=== PATIENT | female | born 1965 | race Caucasian/White ===

== ENCOUNTER → 2016-09-28 | Outpatient (CLI) | payer OTHER ==
[~2016-09-28] MED LIST: AKWASOL OS; ALEV220T26 PO; IMIT100T PO; PERC7.5T12 PO; SYNT100T PO; TOPA100T PO; TREXIMET PO; [UNRECOGNIZED DRUG - CODE] PO
--- NOTE | 2016-09-28 14:45 | REP ---
Pelvic ultrasound including transabdominal, endovaginal and Doppler ultrasound assessment: The bladder appears adequately distended. The uterus is anteverted mildly enlarged measuring 10.0 x 4.9 x 6.1 cm. On endovaginal imaging there is a 1.2 cm fibroid in the posterior uterine wall. This is subserosal location. The endometrium is measures 11.7 mm thickness. For a postmenopausal female the endometrium is abnormally thickened. There is a tiny volume of fluid in the endometrial canal. There is a small cyst in the junctional zone. This is nonspecific but could represent adenomyosis. The ovaries are normal size. Right ovary measures 2.3 x 1.2 x 1.1 cm. The left ovary measures 3.5 x 2.8 x 3.1 cm. The right ovary is not optimally visualized. There is vascular flow in the right ovary with the Doppler resistive index of the intraparenchymal arteries measuring 0.55. There is a left ovarian 3.0 cm cyst. There is vascular flow in the left ovary with the Doppler resistive index of the intraparenchymal arteries measuring 0.51. There is no free fluid in the pelvis. Impression: The endometrium is thickened for a postmenopausal female. There are small cysts at the junctional zone, possibly representing adenomyosis. There is a 1.2 cm fibroid in the posterior myometrium. Subserosal location. There is a 3.0 cm right ovarian cyst. No free fluid in the pelvis. Signed by Christos Mcknight MD 09/28/2016 02:36 P
== END ==
LOC: M SMT 13:07
PROVIDERS: ATTEND Obstetrics & Gynecology
DX: N83.291 Other ovarian cyst, right side (principal)

== ENCOUNTER → 2016-10-11 | Outpatient (REF) | payer OTHER | LOC: M SFHCPLAZ 11:56 | PROVIDERS: ATTEND Dermatology | DX: D22.61 Melanocytic nevi of right upper limb, including shoulder (principal); D23.72 Other benign neoplasm of skin of left lower limb, including hip ==

== ENCOUNTER → 2017-10-09 | Outpatient (CLI) | payer OTHER | LOC: M WHC 09:22 | DX: Z12.31 Encounter for screening mammogram for malignant neoplasm of breast (principal); Z78.0 Asymptomatic menopausal state; Z98.82 Breast implant status ==

== ENCOUNTER 2018-01-25 08:44 | Emergency (ER) | payer OTHER ==
[2018-01-25 10:32] LABS: BASO # 0.1 10^3/uL (0.0-0.2); EOS # 0.1 10^3/uL (0.0-0.50); EOS % 2.6 % (0.0-3.0); HEMATOCRIT 41.4 % (36.0-47.0); HEMOGLOBIN 14.5 g/dl (12.0-15.5); IMMATURE GRANULOCYTE % 0.2 % (0-3.0); LYMPH # 0.9 10^3/uL (1.5-4.5); LYMPH % 17.5 % (24.0-44.0); MEAN CORPUSCULAR HEMOGLOBIN 29.6 pg (27.0-33.0); MEAN CORPUSCULAR VOLUME 84.5 fl (80.0-96.0); MONO # 0.4 10^3/uL (0.0-0.8); MONO % 7.6 % (0.0-5.0); NEUTROPHILS # 3.5 10^3/uL (1.8-7.7); NEUTROPHILS % 71.1 % (36.0-66.0); PLATELET COUNT, AUTOMATED 195 10^3/uL (150-450); RED CELL DISTRIBUTION WIDTH 11.2 % (11.5-14.5)
[2018-01-25 10:49] LABS: ALBUMIN 4.3 GM/DL (3.2-5.2); ALBUMIN/GLOBULIN RATIO 1.34 (1.00-1.93); ALT/SGPT 27 U/L (12-78); ANION GAP 10 MEQ/L (8-16); AST/SGOT 13 U/L (7-37); BILIRUBIN,DIRECT 0.1 MG/DL (0.0-0.2); BILIRUBIN,TOTAL 0.5 MG/DL (0.2-1.0); BLOOD UREA NITROGEN 21 MG/DL (7-18); CALCIUM LEVEL 8.9 MG/DL (8.5-10.1); CARBON DIOXIDE LEVEL 27 MEQ/L (21-32); CHLORIDE LEVEL 100 MEQ/L (98-107); CHOLESTEROL LEVEL 218 MG/DL (<200); CREATININE FOR GFR 1.09 MG/DL (0.55-1.30); GLOMERULAR FILTRATION RATE 55.9 (>51); LIPASE 217 U/L (73-393); SODIUM LEVEL 137 MEQ/L (136-145); TOTAL PROTEIN 7.5 GM/DL (6.4-8.2); TRIGLYCERIDES LEVEL 175 MG/DL (<150); TROPONIN I < 0.02 NG/ML (< 0.10)
[2018-01-25 10:54] LABS: ALKALINE PHOSPHATASE 80 U/L (45-117); CHOLESTEROL RISK RATIO 4.954 (<5); CK-MB VALUE MASS 4.9 NG/ML (<3.6); CPK CREATINE PHOSPHOKINASE 136 U/L (26-192); FREE T4 1.54 NG/DL (0.76-1.46); HDL CHOLESTEROL 44 MG/DL (>40); NON-HDL-C 174 MG/DL; THYROID STIMULATING HORMONE 0.168 uIU/ML (0.358-3.740)
[2018-01-25 10:59] LABS: GLUCOSE, FASTING 454 MG/DL (70-100); POTASSIUM SERUM 5.2 MEQ/L (3.5-5.1)
[2018-01-25 11:24] LABS: ESTIMATED AVERAGE GLUCOSE 266 MG/DL (60-110); HEMOGLOBIN A1c 10.9 %
[2018-01-25 11:34] LABS: VENOUS BASE EXCESS -3.8 (-2.0-2.0); VENOUS HCO3 22.5 MEQ/L (23.0-27.0); VENOUS O2 SATURATION 74.3 % (60.0-80.0); VENOUS PARTIAL PRESSURE CO2 45.4 mmHg (38.0-50.0); VENOUS PARTIAL PRESSURE O2 41.5 mmHg (30.0-50.0); VENOUS PH 7.313 UNITS (7.330-7.430); VENOUS STANDARD HCO3 20.8 MEQ/L; VENOUS TOTAL CO2 23.9 MEQ/L (24.0-28.0)
[2018-01-25 11:36] LABS: AMORPHOUS SEDIMENT RFX SMALL (NEGATIVE); KETONE, URINE AUTO RFX 2+ mg/dL (NEGATIVE); LEUKOCYTE ESTERASE UR AUTO RFX NEGATIVE (NEGATIVE); NITRITE, URINE AUTO RFX NEGATIVE (NEGATIVE); RBC, URINE AUTO RFX 2 /HPF (0-3); SPECIFIC GRAVITY UR AUTO RFX 1.031 (1.002-1.035); SQUAM EPITHELIAL CELL UR AURFX 1 /HPF (0-6); WBC, URINE AUTO RFX 2 /HPF (0-3)
[2018-01-25] MEDS: HumuLIN R (REGULAR) INSULIN (NovoLIN R) **100U/ML** PER UNIT IV (13:14)
[2018-01-25 14:05] LABS: BEDSIDE GLUCOSE 268 MG/DL (70-105)
== END 2018-01-25 14:35 | disposition home or self-care (01) ==
LOC: M ED 08:44
DX: E11.9 Type 2 diabetes mellitus without complications (principal); Z79.4 Long term (current) use of insulin; Z79.899 Other long term (current) drug therapy
CPT/HCPCS: 93005

== ENCOUNTER 2018-01-26 17:19 | Observation (INO) | payer OTHER ==
[2018-01-26 18:15] LABS: VENOUS BASE EXCESS -3.4 (-2.0-2.0); VENOUS HCO3 23.1 MEQ/L (23.0-27.0); VENOUS O2 SATURATION 58.8 % (60.0-80.0); VENOUS PARTIAL PRESSURE CO2 46.7 mmHg (38.0-50.0); VENOUS PARTIAL PRESSURE O2 30.8 mmHg (30.0-50.0); VENOUS PH 7.312 UNITS (7.330-7.430); VENOUS STANDARD HCO3 20.7 MEQ/L; VENOUS TOTAL CO2 24.5 MEQ/L (24.0-28.0)
[2018-01-26 18:21] LABS: BASO % 0.6 % (0.0-1.0); EOS # 0.1 10^3/uL (0.0-0.50); EOS % 2.6 % (0.0-3.0); HEMATOCRIT 43.6 % (36.0-47.0); HEMOGLOBIN 15.2 g/dl (12.0-15.5); IMMATURE GRANULOCYTE % 0.2 % (0-3.0); LYMPH # 1.2 10^3/uL (1.5-4.5); LYMPH % 21.7 % (24.0-44.0); MEAN CORPUSCULAR HEMOGLOBIN 30.2 pg (27.0-33.0); MEAN CORPUSCULAR HGB CONC 34.9 g/dl (32.0-36.5); MEAN CORPUSCULAR VOLUME 86.7 fl (80.0-96.0); MONO # 0.4 10^3/uL (0.0-0.8); MONO % 7.3 % (0.0-5.0); NEUTROPHILS # 3.6 10^3/uL (1.8-7.7); NEUTROPHILS % 67.6 % (36.0-66.0); PLATELET COUNT, AUTOMATED 226 10^3/uL (150-450); RED BLOOD COUNT 5.03 10^6/uL (4.00-5.40); RED CELL DISTRIBUTION WIDTH 11.4 % (11.5-14.5); WHITE BLOOD COUNT 5.3 10^3/uL (4.0-10.0)
[2018-01-26 18:24] LABS: KETONE, URINE AUTO RFX TRACE mg/dL (NEGATIVE); LEUKOCYTE ESTERASE UR AUTO RFX NEGATIVE (NEGATIVE); NITRITE, URINE AUTO RFX NEGATIVE (NEGATIVE); RBC, URINE AUTO RFX 2 /HPF (0-3); SPECIFIC GRAVITY UR AUTO RFX 1.035 (1.002-1.035); SQUAM EPITHELIAL CELL UR AURFX 2 /HPF (0-6); WBC, URINE AUTO RFX 2 /HPF (0-3)
[2018-01-26 18:53] LABS: ANION GAP 8 MEQ/L (8-16); BLOOD UREA NITROGEN 21 MG/DL (7-18); CALCIUM LEVEL 9.2 MG/DL (8.5-10.1); CARBON DIOXIDE LEVEL 27 MEQ/L (21-32); CHLORIDE LEVEL 100 MEQ/L (98-107); CREATININE FOR GFR 1.12 MG/DL (0.55-1.30); GLOMERULAR FILTRATION RATE 54.2 (>51); SODIUM LEVEL 135 MEQ/L (136-145)
[2018-01-26 18:58] LABS: GLUCOSE, FASTING 538 MG/DL (70-100)
[2018-01-26 18:59] LABS: POTASSIUM SERUM 5.3 MEQ/L (3.5-5.1)
[2018-01-26] MEDS: NS 1,000 ML IV (19:00)
[2018-01-26] MEDS: HumuLIN R (REGULAR) INSULIN (NovoLIN R) **100U/ML** PER UNIT IV (20:29)
[2018-01-26 20:32] LABS: BEDSIDE GLUCOSE 413 MG/DL (70-105)
[2018-01-26] MEDS ORDERED: metFORMIN (GLUCOPHAGE) 1000 MG TABLET PO (21:00)
[2018-01-26 21:21] LABS: ESTIMATED AVERAGE GLUCOSE 263 MG/DL (60-110); HEMOGLOBIN A1c 10.8 %
[2018-01-26 21:25] LABS: FREE THYROXINE INDEX 4.8 % (1.3-4.8); T UPTAKE 38 % (30-39); THYROXINE (T4) 12.5 UG/DL (4.5-12.0)
[2018-01-26 21:50] LABS: BEDSIDE GLUCOSE 148 MG/DL (70-105)
[2018-01-26] MEDS ORDERED: BISACODYL 5 MG TAB PO (22:00)
[2018-01-26] MEDS ORDERED: ONDANSETRON 4 MG TAB (S0181) PO (22:00)
[2018-01-26] MEDS ORDERED: ACETAMINOPHEN TAB 650MG DOSE (2X325MG) PO (22:00)
[2018-01-27] MEDS ORDERED: GLUCOSE 4 GM CHEW TABLET PO (00:30)
[2018-01-27] MEDS ORDERED: DEXTROSE 50% 50 ML SYRINGE IV (00:30)
[2018-01-27] MEDS ORDERED: GLUCAGON FOR INJ 1 MG VIAL (J1610) SC (00:30)
[2018-01-27 00:45] LABS: BEDSIDE GLUCOSE 102 MG/DL (70-105)
[2018-01-27] MEDS: NS 1,000 ML IV ×2 (00:52→10:52)
[2018-01-27] MEDS: HEPARIN SOD (PORCINE) 5000 UNITS/ML VIAL SC ×2 (01:30→05:53)
[2018-01-27] MEDS: LEVEMIR (INSULIN DETEMIR) 1 UNITS/0.01ML SC (01:30)
[2018-01-27] MEDS: TOPIRAMATE (TopAMAX) 25 MG TAB PO ×2 (01:31→08:27)
[2018-01-27] MEDS: LEVOTHYROXINE 100MCG TABLET (0.1MG) PO (05:52)
[2018-01-27] MEDS: ACETAMINOPHEN TAB 650MG DOSE (2X325MG) PO (05:53)
[2018-01-27 07:13] LABS: ALBUMIN/GLOBULIN RATIO 1.36 (1.00-1.93); ALKALINE PHOSPHATASE 55 U/L (45-117); ALT/SGPT 19 U/L (12-78); ANION GAP 7 MEQ/L (8-16); AST/SGOT 9 U/L (7-37); BILIRUBIN,TOTAL 0.2 MG/DL (0.2-1.0); BLOOD UREA NITROGEN 14 MG/DL (7-18); CALCIUM LEVEL 7.9 MG/DL (8.5-10.1); CARBON DIOXIDE LEVEL 26 MEQ/L (21-32); CHLORIDE LEVEL 111 MEQ/L (98-107); CREATININE FOR GFR 0.74 MG/DL (0.55-1.30); GLOMERULAR FILTRATION RATE > 60.0 (>51); GLUCOSE, FASTING 302 MG/DL (70-100); POTASSIUM SERUM 3.4 MEQ/L (3.5-5.1); SODIUM LEVEL 144 MEQ/L (136-145); TOTAL PROTEIN 5.2 GM/DL (6.4-8.2)
[2018-01-27] MEDS: HumaLOG INSULIN (NovoLOG) PER UNIT SC ×2 (07:40→12:43)
[2018-01-27] MEDS: GLIMEPIRIDE 2 MG TAB PO (08:27)
[2018-01-27] MEDS ORDERED: SITagliptin 50 MG TAB (JANUVIA) PO (09:00)
[2018-01-27 12:30] LABS: BEDSIDE GLUCOSE 106 MG/DL (70-105)
[2018-01-30 10:57] LABS: BEDSIDE GLUCOSE 539 MG/DL (70-105)
== END 2018-01-27 13:50 | disposition home or self-care (01) ==
LOC: M PED 01-27 00:35 → M ED 17:19 → M ED INP 21:59
PROVIDERS: Internal Medicine Nephrology
DX: E11.65 Type 2 diabetes mellitus with hyperglycemia (principal); E03.9 Hypothyroidism, unspecified; Z79.899 Other long term (current) drug therapy
CPT/HCPCS: 82803

== ENCOUNTER → 2018-03-09 | Outpatient (REF) | payer OTHER ==
[2018-03-13 14:16] LABS: GAD-65 AUTOANTIBODY 5400.8 U/mL (0.0-5.0)
== END ==
LOC: M LAB REF 15:07
DX: E11.65 Type 2 diabetes mellitus with hyperglycemia (principal)

== ENCOUNTER → 2018-05-01 | Outpatient (REF) | payer OTHER | LOC: M SFHCLERA 18:14 | DX: R21 Rash and other nonspecific skin eruption (principal) ==

== ENCOUNTER → 2018-05-02 | Outpatient (REF) | payer OTHER | LOC: M LAB REF 17:31 | DX: R21 Rash and other nonspecific skin eruption (principal) ==

== ENCOUNTER → 2019-02-06 | Outpatient (CLI) | payer OTHER ==
[~2019-02-06] MED LIST changes: +BOTO200I IM; +GLIM2TAB29 PO; +LANTINJ4 SC; +SUMA1TAB PO; +TYLE325T5 PO; +[UNRECOGNIZED DRUG - CODE] XX
--- NOTE | 2019-02-06 14:57 | REPMRS ---
Patient History The patient states she had a clinical breast exam in 04/2018. No known family history of cancer. Implants in both breasts, 2003. Digital Woman Screen Mammo: February 06, 2019 - Exam #: [id number] Bilateral CC and MLO view(s) were taken. Technologist: Niocle Solano, Technologist Prior study comparison: October 09, 2017, digital woman screen mammo performed at [facility]. February 08, 2016, digital woman screen mammo performed at [facility]. FINDINGS: The breast tissue is heterogeneously dense. This may lower the sensitivity of mammography. The visualized implant margins are smooth. Breast parenchymal density pattern is essentially symmetric. No dominant mass, grouped microcalcification, or architectural distortion is evident on either side. 3-D tomosynthesis shows no additional findings. No significant changes when compared with prior studies. Assessment: BI-RADS/ACR category 2 mammogram. Benign Findings. Recommendation Routine screening mammogram of both breasts in 1 year (for women over age 40). This patient's Lifetime Breast Cancer RIsk is estimated at 8.3 %. This mammogram was interpreted with the aid of an FDA-approved computer-aided dectection system. Electronically Signed By: Supa Anthony MD 02/06/19 [id number]
== END ==
LOC: M WHC 10:03
PROVIDERS: ATTEND Obstetrics & Gynecology
DX: Z12.31 Encounter for screening mammogram for malignant neoplasm of breast (principal)

== ENCOUNTER → 2019-08-14 | Outpatient (CLI) | payer OTHER ==
[2019-08-14 19:06] LABS: BLOOD UREA NITROGEN 21 MG/DL (7-18); CARBON DIOXIDE LEVEL 31 MEQ/L (21-32); CHLORIDE LEVEL 105 MEQ/L (98-107); CHOLESTEROL LEVEL 193 MG/DL (<200); CHOLESTEROL RISK RATIO 2.924 (<5); CREATININE FOR GFR 0.85 MG/DL (0.55-1.30); GLOMERULAR FILTRATION RATE > 60.0 (>51); GLUCOSE, FASTING 118 MG/DL (70-100); HDL CHOLESTEROL 66 MG/DL (>40); LDL CHOLESTEROL 110 MG/DL (<100); NON-HDL-C 127 MG/DL; POTASSIUM SERUM 4.1 MEQ/L (3.5-5.1); SODIUM LEVEL 141 MEQ/L (136-145); TRIGLYCERIDES LEVEL 85 MG/DL (<150)
== END ==
LOC: M PLALAB 13:15
PROVIDERS: ATTEND Internal Medicine
DX: I10 Essential (primary) hypertension (principal); E03.9 Hypothyroidism, unspecified; Z13.220 Encounter for screening for lipoid disorders

== ENCOUNTER → 2020-02-26 | Outpatient (CLI) | payer OTHER ==
--- NOTE | 2020-02-26 16:56 | REPMRS ---
Patient History The patient states she had a clinical breast exam in April 2019. No known family history of cancer. Implants in both breasts, 2003. 3D TOMOSYNTHESIS WAS PERFORMED. [facility] for [facility] cancer is 8.1%. VOLPARA DENSITY B Digital Woman Screen Mammo: February 26, 2020 - Exam #: [id number] Bilateral CC and MLO view(s) were taken. Technologist: Ekaterina Arshad RT Prior study comparison: February 06, 2019, bilateral digital woman screen mammo performed at [facility]. October 09, 2017, digital woman screen mammo performed at [facility]. FINDINGS: The breast tissue is heterogeneously dense. This may lower the sensitivity of mammography. There has been no change in the appearance of the mammogram from the prior studies. There is a moderate amount of residual fibroglandular tissue which is fairly symmetric. There is no interval development of dominant mass, areas of architectural distortion, or clustered microcalcification typical of malignancy. Bilateral breast implants are grossly intact. No significant changes when compared with prior studies. Assessment: BI-RADS/ACR category 1 mammogram. Negative Mammogram. Recommendation Routine screening mammogram in 1 year (for women over age 40). This mammogram was interpreted with the aid of an FDA-approved computer-aided dectection system. Electronically Signed By: Christos Martinez MD 02/26/20 [id number]
== END ==
LOC: M WHC 15:54
PROVIDERS: ATTEND Obstetrics & Gynecology
DX: Z12.31 Encounter for screening mammogram for malignant neoplasm of breast (principal)

== ENCOUNTER → 2020-04-15 | Outpatient (CLI) | payer OTHER ==
[2020-04-15 14:08] LABS: HEMOGLOBIN 14.1 g/dl (12.0-15.5); MEAN CORPUSCULAR HEMOGLOBIN 29.9 pg (27.0-33.0); MEAN CORPUSCULAR VOLUME 93.4 fl (80.0-96.0); PLATELET COUNT, AUTOMATED 235 10^3/uL (150-450); RED BLOOD COUNT 4.71 10^6/uL (4.00-5.40)
[2020-04-15 14:39] LABS: ALBUMIN 3.9 GM/DL (3.2-5.2); ALT/SGPT 21 U/L (12-78); BILIRUBIN,TOTAL 0.4 MG/DL (0.2-1.0); BLOOD UREA NITROGEN 15 MG/DL (7-18); CALCIUM LEVEL 9.2 MG/DL (8.5-10.1); CARBON DIOXIDE LEVEL 30 MEQ/L (21-32); CHLORIDE LEVEL 105 MEQ/L (98-107); CHOLESTEROL LEVEL 210 MG/DL (<200); CHOLESTEROL RISK RATIO 3.043 (<5); CREATININE FOR GFR 0.79 MG/DL (0.55-1.30); GLOMERULAR FILTRATION RATE > 60.0 (>51); GLUCOSE, FASTING 136 MG/DL (70-100); HDL CHOLESTEROL 69 MG/DL (>40); LDL CHOLESTEROL 128 MG/DL (<100); NON-HDL-C 141 MG/DL; POTASSIUM SERUM 4.2 MEQ/L (3.5-5.1); SODIUM LEVEL 140 MEQ/L (136-145); TOTAL PROTEIN 6.8 GM/DL (6.4-8.2); TRIGLYCERIDES LEVEL 66 MG/DL (<150)
[2020-04-15 14:48] LABS: CREATININE, URINE 13.9 MG/DL; MALB URINE SIEMENS < 5.0 MG/L; MAU/CREAT RATIO 35.9 MCG/MG (0.0-30.0)
== END ==
LOC: M PLALAB 10:49
PROVIDERS: ATTEND Internal Medicine Endocrinology, Diabetes & Metabolism
DX: E10.649 Type 1 diabetes mellitus with hypoglycemia without coma (principal)

== ENCOUNTER 2020-08-18 15:38 | Emergency (ER) | payer OTHER ==
[~2020-08-18] VITALS: Ht 157.5 cm; Wt 60.7 kg
--- OUTSIDE RECORDS SUMMARY | 2020-08-18 15:44 | CCD ---
Author Author [facility] Address Unknown Phone Unavailable Support Name Relationship Address Phone GUZMAN CORTEZ Next Of Kin [address] [place] [address] INDRIVSCH [facility] [id number] [address] [place] [address] PATRICIA GAN Next Of [facility] [id number] [place] [phone] PATRICIA FRANCE Next Of [facility] [id number] [place] [id number] KARRIE PADGETT Next Of Kin [address] [place] [address] [facility] [address] [place] [address] Mita PADGETT Next Of Kin [address] [facility][1] [address] [place] [address] JAMEE PADGETT Next Of Kin [address] [place] [address] [place] [address] [facility] Next Of Kin [id number] [place] [address] [address] [place] [address] [facility] Next Of Kin [phone] [facility] [address] [place] [address] ANGELICA [place] [phone] MALACHI SILVA Next Of Kin [address] [place] [address] Patricia Gan [place] [address] [place] [address] Unavailable [place] [address] Unavailable Care Team Providers Care Media Operator Name Role Phone Marcelo, Gabi MD Unavailable Unavailable Marcelo, Gabi MD Unavailable Unavailable Marcelo, Gabi MD Unavailable Unavailable Marcelo, Gabi MD Unavailable Unavailable Marcelo, Gabi MD Unavailable Unavailable Marcelo, Gabi MD Unavailable Unavailable Marcelo, Gabi MD Unavailable Unavailable Marcelo, Gabi MD Unavailable Unavailable Marcelo, Gabi MD Unavailable Unavailable Marcelo, Gabi MD Unavailable Unavailable Marcelo, Gabi MD Unavailable Unavailable Marcelo, Gabi MD Unavailable Unavailable Marcelo, Gabi MD Unavailable Unavailable Marcelo, Gabi MD Unavailable Unavailable Marcelo, Gabi MD Unavailable Unavailable Marcelo, Gabi MD Unavailable Unavailable Marcelo, Gabi MD Unavailable Unavailable Marcelo, Gabi MD Unavailable Unavailable Marcelo, Gabi MD Unavailable Unavailable Marcelo, Gabi MD Unavailable Unavailable Marcelo, Gabi MD Unavailable Unavailable Marcelo, Gabi MD Unavailable Unavailable Marcelo, Gabi MD Unavailable Unavailable Marcelo, Gabi MD Unavailable Unavailable Marcelo, Gabi MD Unavailable Unavailable Marcelo, Gabi MD Unavailable Unavailable Marcelo, Gabi MD Unavailable Unavailable Marcelo, Gabi MD Unavailable Unavailable Marcelo, Gabi MD Unavailable Unavailable Marcelo, Gabi MD Unavailable Unavailable Marcelo, Gabi MD Unavailable Unavailable Marcelo, Gabi MD Unavailable Unavailable Marcelo, Gabi MD Unavailable Unavailable Marcelo, Gabi MD Unavailable Unavailable Marcelo, Gabi MD Unavailable Unavailable Marcelo, Gabi MD Unavailable Unavailable Marcelo, Gabi MD Unavailable Unavailable Marcelo, Gabi MD Unavailable Unavailable Marcelo, Gabi MD Unavailable Unavailable Marcelo, Gabi MD Unavailable Unavailable Marcelo, Gabi MD Unavailable Unavailable Marcelo, Gabi MD Unavailable Unavailable Marcelo, Gabi MD Unavailable Unavailable Marcelo, Gabi MD Unavailable Unavailable Marcelo, Gabi MD Unavailable Unavailable Marcelo, Gabi MD Unavailable Unavailable Marcelo, Gabi MD Unavailable Unavailable Marcelo, Gabi MD Unavailable Unavailable Marcelo, Gabi MD Unavailable Unavailable Marcelo, Gabi MD Unavailable Unavailable Marcelo, Gabi MD Unavailable Unavailable Marcelo, Gabi MD Unavailable Unavailable Marcelo, Gabi MD Unavailable Unavailable Marcelo, Gabi MD Unavailable Unavailable Marcelo, Gabi MD Unavailable Unavailable Marcelo, Gabi MD Unavailable Unavailable Marcelo, Gabi MD Unavailable Unavailable Marcelo, Gabi MD Unavailable Unavailable Marcelo, Gabi MD Unavailable Unavailable Marcelo, Gabi MD Unavailable Unavailable Marcelo, Gabi MD Unavailable Unavailable Marcelo, Gabi MD Unavailable Unavailable Marcelo, Gabi MD Unavailable Unavailable HERRERA, DELPHI MARLEE Unavailable Unavailable Fish, Laila Beltran MD Unavailable Unavailable Fish, Laila Beltran MD Unavailable Unavailable Fish, Laila Beltran MD Unavailable Unavailable Fish, Laila Beltran MD Unavailable Unavailable Fish, Laila Beltran MD Unavailable Unavailable Fish, Laila Beltran MD Unavailable Unavailable Fish, Laila Beltran MD Unavailable Unavailable Fish, Laila Beltran MD Unavailable Unavailable Fish, Laila Beltran MD Unavailable Unavailable Fish, Laila Beltran MD Unavailable Unavailable Fish, Laila Beltran MD Unavailable Unavailable Fish, Laila Beltran MD Unavailable Unavailable Fish, Laila Beltran MD Unavailable Unavailable Fish, Laila Beltran MD Unavailable Unavailable Fish, Laila Beltran MD Unavailable Unavailable Fish, Laila Beltran MD Unavailable Unavailable Fish, Laila Beltran MD Unavailable Unavailable Fish, Laila Beltran MD Unavailable Unavailable Fish, Laila Beltran MD Unavailable Unavailable Fish, Laila Beltran MD Unavailable Unavailable Fish, Laila Beltran MD Unavailable Unavailable Fish, Laila Beltran MD Unavailable Unavailable Fish, Laila Beltran MD Unavailable Unavailable Fish, Laila Beltran MD Unavailable Unavailable Fish, Laila Beltran MD Unavailable Unavailable Fish, Laila Beltran MD Unavailable Unavailable Fish, Laila Beltran MD Unavailable Unavailable Fish, Laila Beltran MD Unavailable Unavailable Fish, Laila Beltran MD Unavailable Unavailable Fish, Laila Beltran MD Unavailable Unavailable Fish, Laila Beltran MD Unavailable Unavailable Fish, Laila Beltran MD Unavailable Unavailable Fish, Laila Beltran MD Unavailable Unavailable Fish, Laila Beltran MD Unavailable Unavailable Fish, Laila Beltran MD Unavailable Unavailable Fish, Laila Beltran MD Unavailable Unavailable Fish, Laila Beltran MD Unavailable Unavailable Fish, Laila Beltran MD Unavailable Unavailable Fish, Laila Beltran MD Unavailable Unavailable Fish, Laila Beltran MD Unavailable Unavailable Fish, Laila Beltran MD Unavailable Unavailable Fish, Laila Beltran MD Unavailable Unavailable Fish, Laila Beltran MD Unavailable Unavailable Fish, Laila Beltran MD Unavailable Unavailable Fish, Laila Beltran MD Unavailable Unavailable Fish, Laila Beltran MD Unavailable Unavailable Fish, Laila Beltran MD Unavailable Unavailable Fish, Laila Beltran MD Unavailable Unavailable Fish, Laila Beltran MD Unavailable Unavailable Fish, Laila Beltran MD Unavailable Unavailable Fish, Laila Beltran MD Unavailable Unavailable Fish, Laila Beltran MD Unavailable Unavailable Fish, Laila Beltran MD Unavailable Unavailable Fish, Laila Beltran MD Unavailable Unavailable Fish, Laila Beltran MD Unavailable Unavailable Fish, Laila Beltran MD Unavailable Unavailable Fish, Laila Beltran MD Unavailable Unavailable Fish, Laila Beltran MD Unavailable Unavailable Fish, Laila Beltran MD Unavailable Unavailable Fish, Laila Beltran MD Unavailable Unavailable Fish, Laila Beltran MD Unavailable Unavailable Fish, Laila Beltran MD Unavailable Unavailable Fish, Laila Beltran MD Unavailable Unavailable Laila Padgett MD Unavailable Unavailable Saeid, Susie DIGITAL MEDIA BUYER Unavailable Unavailable Saeid, Susie DIGITAL MEDIA BUYER Unavailable Unavailable Saeid, Susie DIGITAL MEDIA BUYER Unavailable Unavailable Saeid, Susie DIGITAL MEDIA BUYER Unavailable Unavailable Saeid, Susie DIGITAL MEDIA BUYER Unavailable Unavailable Saeid, Susie DIGITAL MEDIA BUYER Unavailable Unavailable Saeid, Susie DIGITAL MEDIA BUYER Unavailable Unavailable Saeid, Susie DIGITAL MEDIA BUYER Unavailable Unavailable Saeid, Susie DIGITAL MEDIA BUYER Unavailable Unavailable Saeid, Susie DIGITAL MEDIA BUYER Unavailable Unavailable Saeid, Susie DIGITAL MEDIA BUYER Unavailable Unavailable Saeid, Susie DIGITAL MEDIA BUYER Unavailable Unavailable Saeid, Susie DIGITAL MEDIA BUYER Unavailable Unavailable Saeid, Susie DIGITAL MEDIA BUYER Unavailable Unavailable Saeid, Susie DIGITAL MEDIA BUYER Unavailable Unavailable Saeid, Susie DIGITAL MEDIA BUYER Unavailable Unavailable Saeid, Susie DIGITAL MEDIA BUYER Unavailable Unavailable Saeid, Susie DIGITAL MEDIA BUYER Unavailable Unavailable Saeid, Susie DIGITAL MEDIA BUYER Unavailable Unavailable Saeid, Susie DIGITAL MEDIA BUYER Unavailable Unavailable Saeid, Susie DIGITAL MEDIA BUYER Unavailable Unavailable Saeid, Susie DIGITAL MEDIA BUYER Unavailable Unavailable Saeid, Susie DIGITAL MEDIA BUYER Unavailable Unavailable Saeid, Susie DIGITAL MEDIA BUYER Unavailable Unavailable Aseid, Susie DIGITAL MEDIA BUYER Unavailable Unavailable Saeid, Susie DIGITAL MEDIA BUYER Unavailable Unavailable Saeid, Susie DIGITAL MEDIA BUYER Unavailable Unavailable Saeid, Susie DIGITAL MEDIA BUYER Unavailable Unavailable Saeid, Susie DIGITAL MEDIA BUYER Unavailable Unavailable Saeid, Susie DIGITAL MEDIA BUYER Unavailable Unavailable Saeid, Susie DIGITAL MEDIA BUYER Unavailable Unavailable Saeid, Susie DIGITAL MEDIA BUYER Unavailable Unavailable Saeid, Susie DIGITAL MEDIA BUYER Unavailable Unavailable Saeid, Susie DIGITAL MEDIA BUYER Unavailable Unavailable Saeid, Susie DIGITAL MEDIA BUYER Unavailable Unavailable Saeid, Ussie DIGITAL MEDIA BUYER Unavailable Unavailable Saeid, Susie DIGITAL MEDIA BUYER Unavailable Unavailable Saeid, Susie DIGITAL MEDIA BUYER Unavailable Unavailable Saeid, Susie DIGITAL MEDIA BUYER Unavailable Unavailable Saeid, Susie DIGITAL MEDIA BUYER Unavailable Unavailable Saeid, Susie DIGITAL MEDIA BUYER Unavailable Unavailable Saeid, Susie DIGITAL MEDIA BUYER Unavailable Unavailable Saeid, Susie DIGITAL MEDIA BUYER Unavailable Unavailable Saeid, Susie DIGITAL MEDIA BUYER Unavailable Unavailable Saeid, Susie DIGITAL MEDIA BUYER Unavailable Unavailable Saeid, Susie DIGITAL MEDIA BUYER Unavailable Unavailable Saeid, Susie DIGITAL MEDIA BUYER Unavailable Unavailable Saeid, Susie DIGITAL MEDIA BUYER Unavailable Unavailable Saeid, Susie DIGITAL MEDIA BUYER Unavailable Unavailable Saeid, Susie DIGITAL MEDIA BUYER Unavailable Unavailable Saeid, Susie DIGITAL MEDIA BUYER Unavailable Unavailable Saeid, Susie DIGITAL MEDIA BUYER Unavailable Unavailable Saeid, Susie DIGITAL MEDIA BUYER Unavailable Unavailable MohitbekKaye Vee MD Unavailable Unavailable Dombek-Sanya, Kaye Ewing MD Unavailable Unavailable Mohitbek-Sanya, Kaye Ewing MD Unavailable Unavailable Mhoitbek-Sanya, Kaye Ewing MD Unavailable Unavailable Dombek-Sanya, Kaye Ewing MD Unavailable Unavailable Dombek-Lang, Kaye Ewing MD Unavailable Unavailable Dombek-Lang, Kaye Ewing MD Unavailable Unavailable Dombek-Lang, Kaye Ewing MD Unavailable Unavailable Dombek-Lang, Kaye Ewing MD Unavailable Unavailable Dombek-Sanya, Kaye Ewing MD Unavailable Unavailable Dombek-Kaye Segundo MD Unavailable Unavailable Dombek-Kaye Segundo MD Unavailable Unavailable Mohitbek-Kaye Segundo MD Unavailable Unavailable Mohitbek-Kaye Segundo MD Unavailable Unavailable Mohitbek-Kaye Segundo MD Unavailable Unavailable Dombek-Kaye Segundo MD Unavailable Unavailable MohitbekKaye Vee MD Unavailable Unavailable MohitbekKaye Vee MD Unavailable Unavailable Dombek-Kaye Segundo MD Unavailable Unavailable MohitbekKaye Vee MD Unavailable Unavailable Dombek-Kaye Segundo MD Unavailable Unavailable MohitbekKaye Vee MD Unavailable Unavailable MohitbeKaye Mirza MD Unavailable Unavailable Mohitbek-Kaye Segundo MD Unavailable Unavailable MohitbekKaye Vee MD Unavailable Unavailable Dombek-Kaye Segundo MD Unavailable Unavailable Dombek-Kaye Segundo MD Unavailable Unavailable Mohitbek-Kaye Segundo MD Unavailable Unavailable Mohitbek-Kaye Segundo MD Unavailable Unavailable Mohitbek-Kaye Segundo MD Unavailable Unavailable Mohitbek-Kaye Segundo MD Unavailable Unavailable Dombek-Kaye Segundo MD Unavailable Unavailable Mohitbek-Kaye Segundo MD Unavailable Unavailable Dombek-Kaye Segundo MD Unavailable Unavailable Dombek-LangKaye MD Unavailable Unavailable Dombek-Lang, V Kaylin MD Unavailable Unavailable Kaye Steve MD Unavailable Unavailable CHETAN GALLEGOS Unavailable Unavailable MCCANN, W VALORIE PA Unavailable Unavailable MCCANN, W VALORIE PA Unavailable Unavailable MCCANN, W VALORIE PA Unavailable Unavailable MCCANN, W VALORIE PA Unavailable Unavailable MCCANN, W VALORIE PA Unavailable Unavailable MCCANN, W VALORIE PA Unavailable Unavailable MCCANN, W VALORIE PA Unavailable Unavailable MCCANN, W VALORIE PA Unavailable Unavailable MCCANN, W VALORIE PA Unavailable Unavailable MCCANN, W VALORIE PA Unavailable Unavailable MCCANN, W VALORIE PA Unavailable Unavailable MCCANN, W VALORIE PA Unavailable Unavailable MCCANN, W VALORIE PA Unavailable Unavailable MCCANN, W VALORIE PA Unavailable Unavailable MCCANN, W VALORIE PA Unavailable Unavailable MCCANN, W VALORIE PA Unavailable Unavailable MCCANN, W VALORIE PA Unavailable Unavailable MCCANN, W VALORIE PA Unavailable Unavailable MCCANN, W VALORIE PA Unavailable Unavailable MCCANN, W VALORIE PA Unavailable Unavailable MCCANN, W VALORIE PA Unavailable Unavailable MCCANN, W VALORIE PA Unavailable Unavailable MCCANN, W VALORIE PA Unavailable Unavailable MCCANN, W VALORIE PA Unavailable Unavailable MCCANN, W VALORIE PA Unavailable Unavailable MCCANN, W VALORIE PA Unavailable Unavailable MCCANN, W VALORIE PA Unavailable Unavailable MCCANN, W VALORIE PA Unavailable Unavailable MCCANN, W VALORIE PA Unavailable Unavailable MCCANN, W VALORIE PA Unavailable Unavailable MCCANN, W VALORIE PA Unavailable Unavailable MCCANN, W VALORIE PA Unavailable Unavailable MCCANN, W VALORIE PA Unavailable Unavailable MCCANN, W VALORIE PA Unavailable Unavailable MCCANN, W VALORIE PA Unavailable Unavailable MCCANN, W VALORIE PA Unavailable Unavailable MCCANN, W VALORIE PA Unavailable Unavailable MCCANN, W VALORIE PA Unavailable Unavailable MCCANN, W VALORIE PA Unavailable Unavailable MCCANN, W VALORIE PA Unavailable Unavailable MCCANN, W VALORIE PA Unavailable Unavailable MCCANN, W VALORIE PA Unavailable Unavailable MCCANN, W VALORIE PA Unavailable Unavailable MCCANN, W VALORIE PA Unavailable Unavailable MCCANN, W VALORIE PA Unavailable Unavailable MCCANN, W VALORIE PA Unavailable Unavailable NOEMY, J Barbara ANP Unavailable Unavailable NOEMY, J Barbara ANP Unavailable Unavailable NOEMY, J Barbara ANP Unavailable Unavailable NOEMY, J Barbara ANP Unavailable Unavailable NOEMY, J Barbara ANP Unavailable Unavailable NOEMY, J Barbara ANP Unavailable Unavailable NOEMY, J Barbara ANP Unavailable Unavailable NOEMY, J Barbara ANP Unavailable Unavailable NOEMY, J Barbara ANP Unavailable Unavailable NOEMY, J Barbara ANP Unavailable Unavailable NOEMY, J Barbara ANP Unavailable Unavailable NOEMY, J Barbara ANP Unavailable Unavailable NOEMY, J Barbara ANP Unavailable Unavailable NOEMY, J Barbara ANP Unavailable Unavailable NOEMY, J Barbara ANP Unavailable Unavailable NOEMY, J Barbara ANP Unavailable Unavailable NOEMY, J Barbara ANP Unavailable Unavailable NOEMY, J Barbara ANP Unavailable Unavailable NOEMY, J Barbara ANP Unavailable Unavailable NOEMY, J Barbara ANP Unavailable Unavailable NOEMY, J Barbara ANP Unavailable Unavailable NOEMY, J Barbara ANP Unavailable Unavailable NOEMY, J Barbara ANP Unavailable Unavailable NOEMY, J Barbara ANP Unavailable Unavailable NOEMY, J Barbara ANP Unavailable Unavailable NOEMY, J Barbara ANP Unavailable Unavailable NOEMY, J Barbara ANP Unavailable Unavailable NOEMY, J Barbara ANP Unavailable Unavailable NOEMY, J Barbara ANP Unavailable Unavailable NOEMY, J Barbara ANP Unavailable Unavailable NOEMY, J Barbara ANP Unavailable Unavailable NOEMY, J Barbara ANP Unavailable Unavailable NOEMY, J Barbara ANP Unavailable Unavailable NOEMY, J Barbara ANP Unavailable Unavailable NOEMY, J Barbara ANP Unavailable Unavailable NOEMY, J Barbara ANP Unavailable Unavailable NOEMY, J Barbara ANP Unavailable Unavailable NOEMY, J Barbara ANP Unavailable Unavailable NOEMY, J Barbara ANP Unavailable Unavailable NOEMY, J Barbara ANP Unavailable Unavailable NOEMY, J Barbara ANP Unavailable Unavailable NOEMY, J Barbara ANP Unavailable Unavailable NOEMY, J Barbara ANP Unavailable Unavailable NOEMY, J Barbara ANP Unavailable Unavailable NOEMY, J Barbara ANP Unavailable Unavailable NOEMY, J Barbara ANP Unavailable Unavailable NOEMY, J Barbara ANP Unavailable Unavailable NOEMY, J Barbara ANP Unavailable Unavailable NOEMY, J Barbara ANP Unavailable Unavailable NOEMY, J Barbara ANP Unavailable Unavailable NOEMY, J Barbara ANP Unavailable Unavailable NOEMY, J Barbara ANP Unavailable Unavailable NOEMY, J Barbara ANP Unavailable Unavailable NOEMY, J Barbara ANP Unavailable Unavailable NOEMY, J Barbara ANP Unavailable Unavailable NOEMY, J Barbara ANP Unavailable Unavailable NOEMY, J Barbara ANP Unavailable Unavailable NOEMY, J Barbara ANP Unavailable Unavailable NOEMY, J Barbara ANP Unavailable Unavailable NOEMY, J Barbara ANP Unavailable Unavailable NOEMY, J Barbara ANP Unavailable Unavailable NOEMY, J Barbara ANP Unavailable Unavailable NOEMYMelaniacy ANP Unavailable Unavailable NOEMYMelaniacy ANP Unavailable Unavailable NOEMY, J Barbara ANP Unavailable Unavailable NOEMY J Barbara ANP Unavailable Unavailable Re-disclosure Warning The records that you are about to access may contain information from federally-assisted alcohol or drug abuse programs. If such information is present, then the following federally mandated warning applies: This information has been disclosed to you from records protected by federal confidentiality rules (42 CFR part 2). The federal rules prohibit you from making any further disclosure of this information unless further disclosure is expressly permitted by the written consent of the person to whom it pertains or as otherwise permitted by 42 CFR part 2. A general authorization for the release of medical or other information is NOT sufficient for this purpose. The Federal rules restrict any use of the information to criminally investigate or prosecute any alcohol or drug abuse patient.The records that you are about to access may contain highly sensitive health information, the redisclosure of which is protected by Article 27-F of the [facility] Public Health law. If you continue you may have access to information: Regarding HIV / AIDS; Provided by facilities licensed or operated by the [facility] Office of Mental Health; or Provided by the [facility] Office for People With Developmental Disabilities. If such information is present, then the following [facility] mandated warning applies: This information has been disclosed to you from confidential records which are protected by state law. State law prohibits you from making any further disclosure of this information without the specific written consent of the person to whom it pertains, or as otherwise permitted by law. Any unauthorized further disclosure in violation of state law may result in a fine or care home sentence or both. A general authorization for the release of medical or other information is NOT sufficient authorization for further disc losure. Family History Family Member Name Family Member Gender Family Member Status Date o f Status Description Data Source(s) Unknown Unknown Problem [facility] ([facility], ) Encounters Encounter Providers Location Date Indications Data Source(s ) Outpatient Attender: Ruby Padgett MD Physical Therapy 07/23 02:45:00 PM EST [facility] Outpatient Attender: Barbara Ashby 01:45:00 PM EST [facility] ([facility] ) Outpatient Attender: Gabi Robertson MD Main office - [facility] 05/13/2020 12:00:00 PM EST [facility] ([facility]) Outpatient Attender: Ruyb Padgett MD Physical Therapy 04/21 03:30:00 PM EDT [facility] ([facility]) Emergency Attender: MARLEE HERRERAReferrer: Susie ROSALESP EMERGENCY ROOM-ER 01/18/2020 09:11:00 PM EDT - 01/18/2020 10:39:00 PM [facility] Patient discharged. Outpatient Attender: Gabi Robertson MD Main office - [facility] 01/13/2020 10:15:00 AM EDT [facility] ([facility]) Outpatient Attender: Ruby Padgett MD Physical Therapy 01/08 09:45:00 AM EDT [facility] ([facility]) Outpatient Attender: Ruby Padgett MD Physical Therapy 10/20 02:30:00 PM EDT [facility] ([facility]) Outpatient Attender: Gabi Robertson MD Main office - [facility] 10/14/2019 11:45:00 AM EDT [facility] ([facility]) Outpatient Attender: Susie Breaux [facility] Gustavo Ashby 0 09/02/2019 03:00:00 PM EDT [facility] ([facility] ) Emergency Attender: FITO GALLEGOSReferrer: Susie hyde [facility] 12/31/2018 03:16:00 PM EDT - 12/31/2018 05:25:00 PM [facility] Emergency Attender: Kaylin Steve MD EMERGENCY ROOM-E R 09/10/2016 01:48:00 PM EDT - 09/10/2016 03:00:00 PM [facility] Emergency Attender: VALORIE CLAROS EMERGENCY ROOM-ER 0 02/12/2014 02:05:00 AM EDT - 02/12/2014 03:41:00 AM [facility] Immunizations Vaccine Date Status Description Data Source(s) This CVX code allows reporting of a vacc ination when formulation is unknown (for example, when recording a Influenza vaccination when noted on a vaccination card) 04/15/2020 02:47:00 PM EDT completed MEDEN T ([facility]) Shingrix Zoster Vaccine (HZV), Recombinant, Subunit, A djuvanted 03/07/2020 01:19:00 PM EDT completed [facility] ([facility]) VARICELLA-ZOSTER VIRUS GLYCOPROTEIN E,REC/AS01B ADJUVA NT/PF 03/07/2020 12:00:00 AM EDT completed [facility] Medications Medication Brand Name Start Date Product Form Dose Route Admi nistrative Instructions Pharmacy Instructions Status Indications Reaction Description Data Source(s) Lidocaine 40 MG/ML Topical Cream Lidocaine 05/13/2020 12:00:00 AM EST active [facility] ([facility] ) 88 mcg 03/09/2020 12:00:00 AM EDT tablet 90 TAKE ONE TABLET BY MOUTH EVERY DAY TAKE ONE TABLET BY MOUTH EVERY DAY SOLD: 03/15/2020 [facility] 88 mcg 03/09/2020 12:00:00 AM EDT tablet 90 TAKE ONE TABLET BY MOUTH EVERY DAY TAKE ONE TABLET BY MOUTH EVERY DAY SOLD: 06/08/2020 [facility] . UNIT 03/07/2020 12:00:00 AM EDT Injectable 1 AD MIN FEE SHOT #2 SHINGRIX ADMIN FEE SHOT #2 SHINGRIX SOLD: 03/07/2020 [facility] Naproxen sodium 500 MG / Sumatriptan 85 MG Oral Tablet 85-500 mg SUMATRIPTAN SUCCINATE/NAPROXEN SODIUM 01/12/2020 12:00:00 AM EDT tablet 9 TAKE ONE TABLET BY MOUTH AT ONSET OF MIGRAINE, MAY REPEAT ONCE IN 2 HOURS TAKE ONE TABLET BY MOUTH AT ONSET OF MIGRAINE, MAY REPEAT ONCE IN 2 HOURS SOLD: 03/15/2020 [facility] Naproxen sodium 500 MG / Sumatriptan 85 MG Oral Tablet 85-500 mg SUMATRIPTAN SUCCINATE/NAPROXEN SODIUM 01/12/2020 12:00:00 AM EDT tablet 9 TAKE ONE TABLET BY MOUTH AT ONSET OF MIGRAINE, MAY REPEAT ONCE IN 2 HOURS TAKE ONE TABLET BY MOUTH AT ONSET OF MIGRAINE, MAY REPEAT ONCE IN 2 HOURS SOLD: 06/28/2020 [facility] Naproxen sodium 500 MG / Sumatriptan 85 MG Oral Tablet 85-500 mg SUMATRIPTAN SUCCINATE/NAPROXEN SODIUM 01/12/2020 12:00:00 AM EDT tablet 9 TAKE ONE TABLET BY MOUTH AT ONSET OF MIGRAINE, MAY REPEAT ONCE IN 2 HOURS TAKE ONE TABLET BY MOUTH AT ONSET OF MIGRAINE, MAY REPEAT ONCE IN 2 HOURS SOLD: 01/17/2020 [facility] 100 unit/mL (3 mL) 10/22/2019 12:00:00 AM EDT insulin pen 15 USE DIRECTED ONCE DAILY 10 UNITS MAXIMUM DAILY DOSE = 20 UNITS USE DIRECTED ONCE DAILY 10 UNITS MAXIMUM DAILY DOSE = 20 UNITS SOLD: 10/31/2019 [facility] 31 gauge x 3/16" 05/20/2019 12:00:00 AM EST needle 300 DIRECTED FOUR TIMES A DAY DIRECTED FOUR TIMES A DAY SOLD: 10/31/2019 [facility] 31 gauge x 3/16" 05/20/2019 12:00:00 AM EST needle 300 DIRECTED FOUR TIMES A DAY DIRECTED FOUR TIMES A DAY SOLD: 07/31/2019 [facility] 31 gauge x 3/16" 05/20/2019 12:00:00 AM EST needle 300 DIRECTED FOUR TIMES A DAY DIRECTED FOUR TIMES A DAY SOLD: 01/17/2020 [facility] 31 gauge x 3/16" 05/20/2019 12:00:00 AM EST needle 300 DIRECTED FOUR TIMES A DAY DIRECTED FOUR TIMES A DAY SOLD: 04/18/2020 [facility] 100 unit/mL 05/10/2019 12:00:00 AM EST insulin pen 15 USE DIRECTED THREE TIMES A DAY MAXIMUM DAILY DOSE = 30 UNITS USE DIRECTED THREE TIMES A DAY MAXIMUM DAILY DOSE = 30 UNITS SOLD: 07/05/2019 [facility] Naproxen sodium 500 MG / Sumatriptan 85 MG Oral Tablet 85-500 mg SUMATRIPTAN SUCCINATE/NAPROXEN SODIUM 05/08/2019 12:00:00 AM EST tablet 9 TAKE ONE TABLET BY MOUTH AT ONSET OF MIGRAINE, MAY REPEAT ONCE IN 2 HOURS TAKE ONE TABLET BY MOUTH AT ONSET OF MIGRAINE, MAY REPEAT ONCE IN 2 HOURS SOLD: 08/04/2019 [facility] Naproxen sodium 500 MG / Sumatriptan 85 MG Oral Tablet 85-500 mg SUMATRIPTAN SUCCINATE/NAPROXEN SODIUM 05/08/2019 12:00:00 AM EST tablet 9 TAKE ONE TABLET BY MOUTH AT ONSET OF MIGRAINE, MAY REPEAT ONCE IN 2 HOURS TAKE ONE TABLET BY MOUTH AT ONSET OF MIGRAINE, MAY REPEAT ONCE IN 2 HOURS SOLD: 09/07/2019 [facility] Naproxen sodium 500 MG / Sumatriptan 85 MG Oral Tablet 85-500 mg SUMATRIPTAN SUCCINATE/NAPROXEN SODIUM 05/08/2019 12:00:00 AM EST tablet 9 TAKE ONE TABLET BY MOUTH AT ONSET OF MIGRAINE, MAY REPEAT ONCE IN 2 HOURS TAKE ONE TABLET BY MOUTH AT ONSET OF MIGRAINE, MAY REPEAT ONCE IN 2 HOURS SOLD: 10/31/2019 [facility] Naproxen sodium 500 MG / Sumatriptan 85 MG Oral Tablet 85-500 mg SUMATRIPTAN SUCCINATE/NAPROXEN SODIUM 05/08/2019 12:00:00 AM EST tablet 9 TAKE ONE TABLET BY MOUTH AT ONSET OF MIGRAINE, MAY REPEAT ONCE IN 2 HOURS TAKE ONE TABLET BY MOUTH AT ONSET OF MIGRAINE, MAY REPEAT ONCE IN 2 HOURS SOLD: 11/21/2019 [facility] Naproxen sodium 500 MG / Sumatriptan 85 MG Oral Tablet 85-500 mg SUMATRIPTAN SUCCINATE/NAPROXEN SODIUM 05/08/2019 12:00:00 AM EST tablet 9 TAKE ONE TABLET BY MOUTH AT ONSET OF MIGRAINE, MAY REPEAT ONCE IN 2 HOURS TAKE ONE TABLET BY MOUTH AT ONSET OF MIGRAINE, MAY REPEAT ONCE IN 2 HOURS SOLD: 12/13/2019 [facility] Naproxen sodium 500 MG / Sumatriptan 85 MG Oral Tablet 85-500 mg SUMATRIPTAN SUCCINATE/NAPROXEN SODIUM 05/08/2019 12:00:00 AM EST tablet 9 TAKE ONE TABLET BY MOUTH AT ONSET OF MIGRAINE, MAY REPEAT ONCE IN 2 HOURS TAKE ONE TABLET BY MOUTH AT ONSET OF MIGRAINE, MAY REPEAT ONCE IN 2 HOURS SOLD: 10/10/2019 [facility] 500 mg 05/07/2019 12:00:00 AM EST tablet 60 TAKE ONE TABLET BY MOUTH TWICE A DAY NEEDED TAKE ONE TABLET BY MOUTH TWICE A DAY NEEDED SOLD: 10/10/2019 [facility] 88 mcg 03/03/2019 12:00:00 AM EDT tablet 90 TAKE ONE TABLET BY MOUTH EVERY DAY TAKE ONE TABLET BY MOUTH EVERY DAY SOLD: 08/29/2019 [facility] 88 mcg 03/03/2019 12:00:00 AM EDT tablet 90 TAKE ONE TABLET BY MOUTH EVERY DAY TAKE ONE TABLET BY MOUTH EVERY DAY SOLD: 12/09/2019 [facility] Insurance Providers Payer name Policy type / Coverage type Policy ID Covered republican ID Covered republican's relationship to hoffman Policy Hoffman Plan Information UMR [facility] [id number] SP [id number] UMR [id number] S [id number] POMCO [id number] S [id number] [employer] [id number] S [id number] AIG CLM# [id number] S CL M# [id number] UMR O [id number] S [id number] UMR [id number] S [id number] [employer] (pr) Medigap Part B [id number] Self [id number] Umr (pr) Commercial [id number] Self [id number] Umr Commercial [id number] Self [id number] [employer] (HMO) [id number] Se lf [id number] UMR U [id number] Self [id number] [employer]/Umr (Old) Medigap Part B [id number] Self [id number] Umr (New [employer]) Commercial [id number] Self [id number] [employer]/Umr (Old) Medigap Part B [id number] Self [id number] ANSI-Commercial [id number] ANSI-Commercial [id number] ANSI-Commercial [id number] [employer]/Umr (Old) Medigap Part B [id number] Self [id number] ANSI-Commercial [id number] ANSI-Commercial [id number] ANSI-Commercial [id number] [employer]/Umr (Old) [facility] Part B [id number] Self [id number] ANSI-Commercial [id number] ANSI-Commercial [id number] [employer]Um[employer] (Old) [facility] Part B [id number] Self [id number] [employer] [facility] [id number] SP [id number] [employer] [id number] SP [id number] UMR -O/P [id number] 18 [id number] [employer] [id number] SP [id number] [employer] Ppo Commercial [id number] Self [id number] [employer] (HMO) [id number] Se lf [id number] [employer] [id number] SP [id number] [employer] Ppo Commercial [id number] Self [id number] [employer] (pr) Commercial [id number] Self [id number] [employer] Ppo Commercial Self POMCO-O/P [id number] 18 [id number] [employer] (pr) Commercial Self [employer] PPO O [id number] S [id number] [employer] (HMO) Se lf [employer] Commercial Self [id number] Problems, Conditions, and Diagnoses Code Display Name Description Problem Type Effective Dates Data Source(s) Z87.891 Personal history of nicotine dependence PERSONAL HISTORY OF NICOTINE DEPENDENCE Diagnosis 01/18/2020 09:11:00 PM EDT [facility] 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 Diagnosis 01/18/2020 09:11:00 PM EDT [facility] 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 VALIDATION CONSULTANT (CU RRENT) USE OF INSULIN Diagnosis 01/18/2020 09:11:00 PM [facility] E10.649 Type 1 diabetes mellitus with hypoglycem ia without coma TYPE 1 DIABETES MELLITUS WITH HYPOGLYCEMIA WITHOUT COMA Diagnosis 01/18/2020 09:11:00 PM [facility] Surgeries/Procedures Procedure Description Date Indications Data Source(s) Amb Glucose Monitoring Interpretation And Report 07/23 12:00:00 AM EST [facility] ([facility]) Amb Glucose Monitoring Interpretation And Report 04/21 12:00:00 AM EDT [facility] ([facility] ) Diabetic Foot Exam 01/09/2020 12:00:00 AM EDT [facility] ([facility] ) Amb Glucose Monitoring Interpretation And Report 01/08 12:00:00 AM EDT [facility] ([facility] ) Amb Glucose Monitoring Interpretation And Report 10/20 12:00:00 AM EDT [facility] ([facility] ) Results ID Date Data Source [id number] 07/23/2020 03:39:00 PM EST [facility] ([facility]) Name Value Range Interpretation Code Description Data Evelia rce(s) Supporting Document(s) Glucose [Mass/volume] in Serum or Plasma 199 [facility] ([facility] ) Hemoglobin A1c/Hemoglobin.total in Blood 7.0 [facility] ([facility]) ID Date Data Source [id number] 04/21/2020 03:33:00 PM EDT [facility] ([facility] ) Name Value Range Interpretation Code Description Data Evelia rce(s) Supporting Document(s) Hemoglobin A1c/Hemoglobin.total in Blood 7.2 [facility] ([facility]) Glucose [Mass/volume] in Serum or Plasma 225 [facility] ([facility]) ID Date Data Source [id number] 04/15/2020 10:55:00 AM EDT [facility] ([facility] ) Name Value Range Interpretation Code Description Data Evelia rce(s) Supporting Document(s) Creatinine [Mass/volume] in Urine 13.9 mg/dL [facility] ([facility]) Microalbumin [Mass/volume] in Urine Laboratory test result [facility] ([facility]) Microalbumin/Creatinine [Mass Ratio] in Urine 35.9 MCG/MG 0.0-30.0 [facility] ([facility] ) THE [employer] STATES THAT MICROALBUMINURIA IS PRESENT IF THE MICROALBUMIN/CREATININE RATIO EXCEEDS 30 MCG/MG. THE THRESHOLD FOR CLINICAL ALBUMINURIA IS REACHED AT 300 MCG/MG. THE CLASSIFICATION OF A PATIENT SHOULD BE BASED UPON AT LEAST 2 OF 3 ABNORMAL RESULTS ON SPECIMENS COLLECTED WITHIN A 3 TO 6 MONTH TIME FRAME. ID Date Data Source [id number] 04/15/2020 10:55:00 AM EDT [facility] ([facility] ) Name Value Range Interpretation Code Description Data Evelia rce(s) Supporting Document(s) Glucose, Fasting 136 mg/dL 70-100 [facility] ([facility] ) Creatinine For GFR 0.79 mg/dL 0.55-1.30 [facility] ([facility]) Blood Urea Nitrogen 15 mg/dL 7-18 [facility] ([facility] Potassium Serum 4.2 meq/L 3.5-5.1 [facility] ([facility]) Glomerular Filtration Rate Laboratory test result [facility] ([facility]) <content>Units are mL/min/1.73 m2</content>
<content></content>
<content>Chronic Kidney Disease Staging per NKF:</content>
<content></content>
<content>Stage I & II GFR >=60 Normal to Mildly Decreased</content>
<content>Stage III GFR 30-59 Moderately Decreased</content>
<content>Stage IV GFR 15-29 Severely Decreased</content>
<content>Stage V GFR <15 Very Little GFR Left</content>
<content>ESRD GFR <15 on ORTHODONTIST SMALL BUSINESS OWNER</content>
<content></content> Sodium Level 140 meq/L 136-145 [facility] ([facility] ) Chloride Level 105 meq/L 98-107 [facility] ([facility] ) Carbon Dioxide Level 30 meq/L 21-32 [facility] ([facility]) Anion Gap 5 meq/L 8-16 [facility] ([facility] ) Calcium Level 9.2 mg/dL 8.5-10.1 [facility] ([facility]) Ast/Sgot 11 U/L 7-37 [facility] ([facility] ) Alkaline Phosphatase 53 U/L 45-117 [facility] Alt/SGPT 21 U/L 12-78 [facility] Bilirubin,Total 0.4 mg/dL 0.2-1.0 [facility] ([facility]) Albumin/Globulin Ratio 1.3 1.2-2.2 [facility] ([facility]) Albumin 3.9 GM/DL 3.2-5.2 [facility] Total Protein 6.8 GM/DL 6.4-8.2 [facility] ([facility]) ID Date Data Source [id number] 04/15/2020 10:55:00 AM EDT [facility] ([facility]) Name Value Range Interpretation Code Description Data Evelia rce(s) Supporting Document(s) White Blood Count 5.0 10 4.0-10.0 [facility]) Red Blood Count 4.71 10 4.00-5.40 [facility] ([facility]) Hematocrit 44.0 % 36.0-47.0 [facility] Hemoglobin 14.1 g/dL 12.0-15.5 [facility] ([facility]) Mean Corpuscular Volume 93.4 fl 80.0-96.0 M [facility] ([facility]) Mean Corpuscular Hemoglobin 29.9 pg 27.0-33.0 [facility] ([facility]) Mean Corpuscular HGB Conc 32.0 g/dL 32.0-36.5 [facility] ([facility]) Red Cell Distribution Width 12.4 % 11.5-14.5 [facility] ([facility]) Platelet Count, Automated 235 10 150-450 [facility] ([facility]) Nucleated Red Blood Cell % 0.0 % 0-0 [facility] ([facility]) ID Date Data Source [id number] 04/15/2020 10:55:00 AM EDT [facility] ([facility]) Name Value Range Interpretation Code Description Data Evelia rce(s) Supporting Document(s) Triglycerides Level 66 mg/dL [facility] Cholesterol Level 210 mg/dL [facility] HDL Cholesterol 69 mg/dL [facility] ([facility]) Non-HDL-C 141 mg/dL [facility] ([facility]) LDL Cholesterol 128 mg/dL [facility] ([facility]) Cholesterol Risk Ratio 3.043 [facility] ([facility]) ID Date Data Source [id number] 04/15/2020 10:55:00 AM EDT [facility] ([facility]) Name Value Range Interpretation Code Description Data Evelia rce(s) Supporting Document(s) Malb Urine Siemens Laboratory test result [facility] ([facility]) Creatinine, Urine 13.9 mg/dL [facility] ([facility]) Carroll/Creat Ratio 35.9 MCG/MG 0.0-30.0 [facility] ([facility]) THE [employer] STATES THAT MICROALBUMINURIA IS PRESENT IF THE MICROALBUMIN/CREATININE RATIO EXCEEDS 30 MCG/MG. THE THRESHOLD FOR CLINICAL ALBUMINURIA IS REACHED AT 300 MCG/MG. THE CLASSIFICATION OF A PATIENT SHOULD BE BASED UPON AT LEAST 2 OF 3 ABNORMAL RESULTS ON SPECIMENS COLLECTED WITHIN A 3 TO 6 MONTH TIME FRAME. ID Date Data Source [id number] 04/15/2020 10:55:00 AM EDT [facility] ([facility]) Name Value Range Interpretation Code Description Data Evelia rce(s) Supporting Document(s) Triglycerides Level 66 mg/dL [facility] ([facility]) Cholesterol Level 210 mg/dL [facility] ([facility]) HDL Cholesterol 69 mg/dL [facility]) Non-HDL-C 141 mg/dL [facility] LDL Cholesterol 128 mg/dL [facility] ([facility]) Cholesterol Risk Ratio 3.043 [facility] ([facility]) ID Date Data Source [id number] 04/15/2020 10:55:00 AM EDT [facility] ([facility]) Name Value Range Interpretation Code Description Data Evelia rce(s) Supporting Document(s) Glucose, Fasting 136 mg/dL 70-100 [facility] ([facility]) Creatinine For GFR 0.79 mg/dL 0.55-1.30 [facility] ([facility]) Glomerular Filtration Rate Laboratory test result [facility] ([facility]) <content>Units are mL/min/1.73 m2</content>
<content></content>
<content>Chronic Kidney Disease Staging per NKF:</content>
<content></content>
<content>Stage I & II GFR >=60 Normal to Mildly Decreased</content>
<content>Stage III GFR 30-59 Moderately Decreased</content>
<content>Stage IV GFR 15-29 Severely Decreased</content>
<content>Stage V GFR <15 Very Little GFR Left</content>
<content>ESRD GFR <15 on ORTHODONTIST SMALL BUSINESS OWNER</content>
<content></content> Blood Urea Nitrogen 15 mg/dL 7-18 [facility] ([facility]) Chloride Level 105 meq/L 98-107 [facility] ([facility]) Potassium Serum 4.2 meq/L 3.5-5.1 [facility] ([facility]) Sodium Level 140 meq/L 136-145 [facility] ([facility]) Calcium Level 9.2 mg/dL 8.5-10.1 [facility] ([facility]) Anion Gap 5 meq/L 8-16 [facility] ([facility]) Carbon Dioxide Level 30 meq/L 21-32 [facility] ([facility]) Alkaline Phosphatase 53 U/L 45-117 [facility] ([facility]) Alt/SGPT 21 U/L 12-78 [facility]) Ast/Sgot 11 U/L 7-37 [facility] ([facility]) Bilirubin,Total 0.4 mg/dL 0.2-1.0 [facility] ([facility]) Total Protein 6.8 GM/DL 6.4-8.2 [facility] ([facility]) Albumin 3.9 GM/DL 3.2-5.2 [facility] ([facility]) Albumin/Globulin Ratio 1.3 1.2-2.2 [facility] ([facility]) ID Date Data Source [id number] 04/15/2020 10:55:00 AM EDT [facility] ([facility]) Name Value Range Interpretation Code Description Data Evelia rce(s) Supporting Document(s) Red Blood Count 4.71 10 4.00-5.40 [facility] ([facility]) White Blood Count 5.0 10 4.0-10.0 [facility] ([facility]) Mean Corpuscular Volume 93.4 fl 80.0-96.0 [facility] ([facility]) Hematocrit 44.0 % 36.0-47.0 [facility]) Mean Corpuscular Hemoglobin 29.9 pg 27.0-33.0 [facility] ([facility]) Hemoglobin 14.1 g/dL 12.0-15.5 [facility]) Platelet Count, Automated 235 10 150-450 [facility] ([facility]) Mean Corpuscular HGB Conc 32.0 g/dL 32.0-36.5 [facility] ([facility]) Red Cell Distribution Width 12.4 % 11.5-14.5 [facility] ([facility]) Nucleated Red Blood Cell % 0.0 % 0-0 [facility] ([facility]) ID Date Data Source [id number] 01/19/2020 04:34:00 AM EDT [facility] Patient: MAY PADGETT Re port - [facility]VisitID: [id number] [place] [address] [phone], FRegistration Date/Time: 01/18/2020 20:31 Weight:58.5 kg (S). Height/Length:63 inches (S). BMI:22.9 FAMILY HISTORYNo significant family medical history. (Electronically signed by Marlee Herrera M.D. 01/19/2020 03:48) Name Value Range Interpretation Code Description Data Evelia rce(s) Supporting Document(s) ID Date Data Source [id number] 01/18/2020 09:30:00 PM EDT [facility] ([facility]) Name Value Range Interpretation Code Description Data Evelia rce(s) Supporting Document(s) BUN 12 mg/dL 7-18 [facility]) Na 142 mmol/L 136-145 [facility]) Cre 0.9 mg/dL 0.6-1.0 [facility]) Glu 156 mg/dL 74-106 [facility]) Co2 31 mmol/L 21-32 [facility]) CL 103 mmol/L 98-107 [facility] K 3.2 mmol/L 3.5-5.1 [facility]) GFR 65 mL/min [facility]) <content>GFR IS CALCULATED IN mL/min/1.73m2</content>
<content></content>
<content>NORMAL FUNCTION: >90</content>
<content>MILDLY DECREASED: 60-89</content>
<content>MILDY TO MODERATELY DECREASED: 45-59</content>
<content>MODERATELY TO SEVERELY DECREASED: 30-44</content>
<content>SEVERELY DECREASED: 15- 29</content>
<content>RENAL FAILURE: <15</content>
<content></content> Ast 17 U/L 15-37 [facility]) CA 8.8 mg/dL 8.5-10.1 [facility]) Gap 8.0 mmol/L 5-12 [facility] Alk 48 U/L 46-116 [facility]) Tbili 0.2 mg/dL 0.2-1.0 [facility]) Alt 26 U/L 12-78 [facility]) TP 6.5 g/dL 6.4-8.2 [facility]) Alb 3.7 gm/dL 3.4-5.0 [facility]) ID Date Data Source [id number] 01/18/2020 09:30:00 PM EDT [facility] ([facility]) Name Value Range Interpretation Code Description Data Evelia rce(s) Supporting Document(s) Hemoglobin A1c/Hemoglobin.total in Blood 6.8 % 3.8-5.6 [facility] ([facility]) <content>Diabetic > or = to 6.5%</conten t>
<content>Prediabetes 5.7- 6.4%</content>
<content>Normal <5.7</content>
<content></content> ID Date Data Source [id number] 01/18/2020 09:30:00 PM EDT [facility] ([facility]) Name Value Range Interpretation Code Description Data Evelia rce(s) Supporting Document(s) WBC 6.1 K/mm3 4.0-10.0 [facility] RBC 4.36 M/mm3 4.00-5.50 [facility] HCT 38.9 % 36.0-48.8 [facility]) HGB 13.0 gm/dL 12.0-16.0 [facility]) MCV 89.2 fl 80-96 [facility]) RDW 12.5 % 10.0-14.5 [facility]) MCH 29.8 pg 27.0-31.0 [facility]) MCHC 33.4 g/dL 32.0-36.0 [facility]) PLT 221 K/mm3 172-450 [facility]) GR% 70.8 % 50-80.0 [facility]) Ig% 0.2 % 0.0-0.2 [facility]) MPV 9.9 fl 9.0-13.0 [facility]) Mo% 9.3 % 2.0-10.0 [facility] Ly% 17.2 % 25.0-50.0 [facility] Eo% 1.8 % 0-5.0 [facility]) Ig# 0.0 K/mm3 0.0-0.2 [facility]) GR# 4.3 K/mm3 2.0-8.00 [facility]) Ba% 0.7 % 0.0-2.0 [facility]) Ly# 1.1 K/mm3 1.0-5.0 [facility]) Mo# 0.6 K/mm3 0.10-1.20 [facility]) Ba# 0.0 K/mm3 0.0-0.2 [facility]) Eo# 0.1 K/mm3 0.0-0.5 [facility]) ID Date Data Source [id number] 01/18/2020 10:03:00 PM EDT [facility] TSYS[facility] [id number] Name Value Range Interpretation Code Description Data Evelia rce(s) Supporting Document(s) GLUCOSE 156 mg/dL 74-106 [facility] BLOOD UREA NITROGEN 12 mg/dL 7-18 [facility] ital CREATININE 0.9 mg/dL 0.6-1.0 [facility] SODIUM 142 mmol/L 136-145 [facility] POTASSIUM 3.2 mmol/L 3.5-5.1 L [facility] CHLORIDE 103 mmol/L 98-107 [facility] CO2 31 mmol/L 21-32 [facility] CALCIUM 8.8 mg/dL 8.5-10.1 [facility] ANION GAP 8.0 mmol/L 5-12 [facility] GLOMERULAR FILTRATION RATE 65 mL/min [facility] GFR IS CALCULATED IN mL/min/1.73m2 TYE L FUNCTION: >90MILDLY DECREASED: 60-89MILDY TO MODERATELY DECREASED: 45-59 MODERATELY TO SEVERELY DECREASED: 30-44SEVERELY DECREASED: 15-29RENAL FAILURE: <15 AST 17 U/L 15-37 [facility] ALT 26 U/L 12-78 [facility] ALKALINE PHOSPHATASE 48 U/L 46-116 [facility] TOTAL BILIRUBIN 0.2 mg/dL 0.2-1.0 [facility] TOTAL PROTEIN 6.5 g/dl 6.4-8.2 [facility] ALBUMIN 3.7 gm/dL 3.4-5.0 [facility] ID Date Data Source [id number] 01/18/2020 09:58:00 PM EDT [facility] l TSYSORDER [id number] Name Value Range Interpretation Code Description Data [facility] Supporting Document(s) HGBA1C 6.8 % 3.8-5.6 [facility] Diabetic > or = to 6.5%Prediabetes 5.7-6 .4%Normal <5.7 ID Date Data Source [id number] 01/18/2020 09:39:00 PM EDT [facility] l TSYSORDER [id number] Name Value Range Interpretation Code Description Data [facility] Supporting Document(s) WHITE BLOOD COUNT 6.1 K/mm3 4.0-10.0 [facility] al RED BLOOD COUNT 4.36 M/mm3 4.00-5.50 [facility] HEMOGLOBIN 13.0 gm/dL 12.0-16.0 [facility] HEMATOCRIT 38.9 % 36.0-48.8 [facility] MEAN CELL VOLUME 89.2 fl 80-96 [facility] MEAN CORPUSCULAR HEMOGLOBIN 29.8 pg 27.0-31.0 [facility] MEAN CORPUSCULAR HGB CONC 33.4 g/dl 32.0-36.0 [facility] RED CELL DISTRIBUTION WIDTH 12.5 % 10.0-14.5 [facility] PLATELET COUNT 221 K/mm3 172-450 [facility] MEAN PLATELET VOLUME 9.9 fl 9.0-13.0 [facility] pital GRAN % 70.8 % 50-80.0 [facility] IG% 0.2 % 0.0-0.2 [facility] LYMPH % 17.2 % 25.0-50.0 L [facility] MONO % 9.3 % 2.0-10.0 [facility] EOS % 1.8 % 0-5.0 [facility] BASO % 0.7 % 0.0-2.0 [facility] GRAN # 4.3 K/mm3 2.0-8.00 [facility] IG# 0.0 K/mm3 0.0-0.2 [facility] LYMPH # 1.1 K/mm3 1.0-5.0 [facility] MONO # 0.6 K/mm3 0.10-1.20 [facility] EOS # 0.1 K/mm3 0.0-0.5 [facility] BASO # 0.0 K/mm3 0.0-0.2 [facility] ID Date Data Source [id number] 01/09/2020 10:14:00 AM EDT [facility] ([facility]) Name Value Range Interpretation Code Description Data Evelia rce(s) Supporting Document(s) Hemoglobin A1c/Hemoglobin.total in Blood 6.7 [facility] ([facility]) Glucose [Mass/volume] in Serum or Plasma 169 [facility] ([facility]) ID Date Data Source [id number] 08/14/2019 01:16:00 PM EST [facility] ([facility]) Name Value Range Interpretation Code Description Data Evelia rce(s) Supporting Document(s) Glucose, Fasting 118 mg/dL 70-100 [facility] ([facility]) Blood Urea Nitrogen 21 mg/dL 7-18 [facility] ([facility]) Sodium Level 141 meq/L 136-145 [facility] ([facility]) Creatinine For GFR 0.85 mg/dL 0.55-1.30 [facility] ([facility]) Glomerular Filtration Rate > 60.0 [facility] ([facility]) <content>Units are mL/min/1.73 m2</content>
<content></content>
<content>Chronic Kidney Disease Staging per NKF:</content>
<content></content>
<content>Stage I & II GFR >=60 Normal to Mildly Decreased</content>
<content>Stage III GFR 30- 59 Moderately Decreased</content>
<content>Stage IV GFR 15-29 Severely Decreased</content>
<content>Stage V GFR <15 Very Little GFR Left</content>
<content>ESRD GFR <15 on ORTHODONTIST [employer]</content>
<content></content> Potassium Serum 4.1 meq/L 3.5-5.1 [facility] ([facility]) Chloride Level 105 meq/L 98-107 MEDENT ([facility]) Carbon Dioxide Level 31 meq/L 21-32 [facility] Anion Gap 5 meq/L 8-16 MED[facility] ([facility] Calcium Level 9.0 mg/dL 8.5-10.1 MEDENT ([facility]) ID Date Data Source [id number] 08/14/2019 01:16:00 PM EST MEDENT ([facility]) Name Value Range Interpretation Code Description Data Evelia rce(s) Supporting Document(s) Triglycerides Level 85 mg/dL [facility] Cholesterol Level 193 mg/dL MEDENT ([facility]) HDL Cholesterol 66 mg/dL MEDENT ([facility]) Non-HDL-C 127 mg/dL MEDENT ([facility]) LDL Cholesterol 110 mg/dL MEDENT ([facility]) Cholesterol Risk Ratio 2.924 [facility] ([facility]) ID Date Data Source [id number] 08/14/2019 01:16:00 PM EST MEDENT ([facility]) Name Value Range Interpretation Code Description Data Evelia rce(s) Supporting Document(s) Thyrotropin [Units/volume] in Serum or Plasma by Detec tion limit <= 0.05 mIU/L 2.490 uIU/ML 0.358-3.740 MEDENT ([facility] ) Procedure Social History Code Duration Value Status Description Data Source(s ) Smoking 04/21/2020 12:00:00 AM EDT Patient is a former smoker completed Patient is a former smoker MEDENT ([facility]) Vital Signs ID Date Data Source UNK Name Value Range Interpretation Code Description Data Source(s) Oxygen saturation in Arterial blood by Pulse oximetry 98 % 98 % MEDENT ([facility]) Body mass index (BMI) [Ratio] 24.1 kg/m2 24.1 k g/m2 MEDENT ([facility]) Body weight 134.00 [lb_av] 134.00 [lb_av] MEDEN T ([facility]) Body height 62.5 [in_i] 62.5 [in_i] MEDENT ([facility]) 5'2.50" Body temperature 97.0 [degF] 97.0 [degF] MEDENT ([facility]) Heart rate 64 /min 64 /min MEDENT ([facility]) Diastolic blood pressure 70 mm[Hg] 70 mm[Hg] MEDENT ([facility]) Systolic blood pressure 124 mm[Hg] 124 mm[Hg] M EDENT ([facility]) Body mass index (BMI) [Ratio] 23.4 kg/m2 23.4 k g/m2 MED[facility] ([facility]) Oxygen saturation in Arterial blood by Pulse oximetry 97 % 97 % MEDENT ([facility]) Body weight 130.00 [lb_av] 130.00 [lb_av] MEDEN T ([facility]) Body height 62.5 [in_i] 62.5 [in_i] MEDENT ([facility]) 5'2.50" Heart rate 55 /min 55 /min MEDENT ([facility]) Body mass index (BMI) [Ratio] 23.8 kg/m2 23.8 k g/m2 MEDENT ([facility]) Body weight 132.50 [lb_av] 132.50 [lb_av] MEDEN T ([facility]) Body height 62.5 [in_i] 62.5 [in_i] MEDENT ([facility]) 5'2.50" Body temperature 96.2 [degF] 96.2 [degF] MEDENT ([facility]) Heart rate 60 /min 60 /min MEDENT ([facility]) Diastolic blood pressure 80 mm[Hg] 80 mm[Hg] MEDENT ([facility]) Systolic blood pressure 100 mm[Hg] 100 mm[Hg] M EDENT ([facility]) Oxygen saturation in Arterial blood by Pulse oximetry 98 % 98 % MEDENT ([facility]) Body mass index (BMI) [Ratio] 24.3 kg/m2 24.3 k g/m2 MEDENT ([facility]) Body weight 135.00 [lb_av] 135.00 [lb_av] MEDEN T ([facility]) Body height 62.5 [in_i] 62.5 [in_i] MEDENT ([facility]) 5'2.50" Heart rate 70 /min 70 /min MEDENT ([facility]) Diastolic blood pressure 78 mm[Hg] 78 mm[Hg] ROSETTE ([facility]) Systolic blood pressure 124 mm[Hg] 124 mm[Hg] M CESILIA ([facility]) Body mass index (BMI) [Ratio] 24.8 kg/m2 24.8 k g/m2 ROSETTE ([facility]) Body weight 138.00 [lb_av] 138.00 [lb_av] ESTEFANY T ([facility]) Body height 62.5 [in_i] 62.5 [in_i] ROSETTE ([facility]) 5'2.50" Heart rate 74 /min 74 /min ROSETTE ([facility]) Diastolic blood pressure 70 mm[Hg] 70 mm[Hg] ROSETTE ([facility]) Systolic blood pressure 110 mm[Hg] 110 mm[Hg] CESILIA ([facility])
--- OUTSIDE RECORDS SUMMARY | 2020-08-18 15:44 | CCD | Continuity of Care Document ---
Author Author Naomi Zavaleta Organization Unknown Address [address] [address] Phone [phone] Care Team Providers Care Orderly Name Role Phone Barbara Zavaleta AUTM [phone] Problems Active Problems Provider Date Migraine Lesa Enamorado M.D. Onset: 8 Hypothyroidism Lesa Enamorado M.D. Onset: 8 Type 1 diabetes mellitus FRAN Parikh Onset: 07/18/19 19 Social History Type Date Description Comments Sex Unknown ETOH Use Occasionally consumes alcohol 1 glass of wine every now and then ETOH Use Denies alcohol use 2018 Tobacco Use Start: Unknown End: Unknown Patient is a former smoker QUIT 2017 Allergies, Adverse Reactions, Alerts Active Allergies Reaction Severity Comments Date Horse Serum-Tetanus mmr vaccine in the 60 contained horse serum 02/09/2016 Medications Active Medications SIG Qnty Indications Ordering Provide r Date Clotrimazole/Betamethasone Dipropionate 1-0.05% Cream twice a day to rash 15gm R21 FRAN Parikh Shingrix 50mcg/0.5ML Suspension Re c as directed 1units Z23 FRAN Parikh 05/02/2018 Freestyle Sandee 14 Day/Freedom/Flash Danielle toring System Device apply every 14 days 1units MARQUEZ Joiner 04/23/2018 Freestyle Sandee 14 Day/Sensor/Flash Danielle toring System Misc apply every 14 days 2units MARQUEZ Joiner 04/23/2018 Freestyle Precision Curtis Blood Glucose Te st Strips Strips as directed twice a day 75units MARQUEZ Joiner 04/23/2018 Onetouch Delica Lancets Fine 30G 3 0G Misc use two times a day or as directed e11.9 300units Barbara Zavaleta, MARQUEZ 03/14/2018 Synthroid 88mcg Tablets Take One Tablet By Mouth Every Day 90tabs Barbara Zavaleta, [facility] 03/09/2018 Onetouch Delica Lancets Fine 30G 3 0G Misc test daily e11.9 100units Susie Breaux FNP 02/27/2018 Onetouch Verio Flex Bloodglucose Monitor ing System w/Device Kit use as directed AT Work 1units E11.65 Susie Breaux FNP 02/23/2018 BD Pen Needle/Mini/Ultrafine/31G X 3/16" 31G X 5 mm Misc use daily for injections 30units Susie Breaux FNP 02/19/2018 Onetouch Verio Strips Test Once Daily And as Needed 25units Susie Breaux FNP 02/02/2018 Acetaminophen 325mg Tablets 2 tabs by mouth as needed every 4 hours for pain or fever Lesa Enamorado M.D. 01/29/2018 Glucagon Emergency 1mg Kit use as directed as needed for hypoglycemia spell 1units Susie Breaux FNP Lantus 100Unit/ML Solution 8 units before 6 pm Unknown Ajovy 225mg/1.5ML Soln Prefill Syringe Unknown Medications Administered in Office Medication SIG Qnty Indications Ordering Provider Date Immunization Adminstration,1 Vaccine/Tox oid Injection FRAN Parikh 05/02/2018 Immunizations CPT Code Status Date Vaccine Lot # U-Flu Given 04/15/2020 Influenza,Unspecified [id number] Given 03/07/2020 Shingrix Zoster Vaccine (HZV), Recombinant, Subunit, Adjuvanted [id number] Given 01/08/2019 Boostrix Tetanus Diphtheria Pertussis (Over Age 65) [id number] Given 05/02/2018 Influenza Virus Vaccine, Quadrivalent (Cciiv4), Derived From 3 Given 02/23/2018 Pneumovax 23 [id number] Vital Signs Date Vital Result Comment 05/13/2020 2:45pm Heart Rate 55 /min Height 62.5 inches 5'2.50" Weight 130.00 lb O2 % BldC Oximetry 97 % BMI (Body Mass Index) 23.4 kg/m2 09/02/2019 3:10pm BP Systolic 110 mmHg BP Diastolic 70 mmHg Heart Rate 74 /min Height 62.5 inches 5'2.50" Weight 138.00 lb BMI (Body Mass Index) 24.8 kg/m2 Results Test Acquired Date Facility Test Result H/L Range Note Complete Blood Count 04/15/2020 [facility] enter [address] [place], [place] [id number] [phone] White Blood Count 5.0 10 Normal 4.0-10.0 Red Blood Count 4.71 10 Normal 4.00-5.40 Hemoglobin 14.1 g/dL Normal 12.0-15.5 Hematocrit 44.0 % Normal 36.0-47.0 Mean Corpuscular Volume 93.4 fl Normal 80.0-96.0 Mean Corpuscular Hemoglobin 29.9 pg Normal 27.0-33.0 Mean Corpuscular HGB Conc 32.0 g/dL Normal 32.0-36.5 Red Cell Distribution Width 12.4 % Normal 11.5-14.5 Platelet Count, Automated 235 10 Normal 150-450 Nucleated Red Blood Cell % 0.0 % Normal 0-0 Comprehensive Metabolic Profil 04/15/2020 [address] [place] [address] [phone] Glucose, Fasting 136 mg/dL High 70-100 Blood Urea Nitrogen 15 mg/dL Normal 7-18 Creatinine For GFR 0.79 mg/dL Normal 0.55-1.30 Glomerular Filtration Rate > 60.0 Normal >51 1 Sodium Level 140 mEq/L Normal 136-145 Potassium Serum 4.2 mEq/L Normal 3.5-5.1 Chloride Level 105 mEq/L Normal 98-107 Carbon Dioxide Level 30 mEq/L Normal 21-32 Anion Gap 5 mEq/L Low 8-16 Calcium Level 9.2 mg/dL Normal 8.5-10.1 Ast/Sgot 11 U/L Normal 7-37 Alt/SGPT 21 U/L Normal 12-78 Alkaline Phosphatase 53 U/L Normal 45-117 Bilirubin,Total 0.4 mg/dL Normal 0.2-1.0 Total Protein 6.8 GM/DL Normal 6.4-8.2 Albumin 3.9 GM/DL Normal 3.2-5.2 Albumin/Globulin Ratio 1.3 Normal 1.2-2.2 Lipid Panel 04/15/2020 [facility] nter [address] [place] [address] [phone] Triglycerides Level 66 mg/dL Normal <150 Cholesterol Level 210 mg/dL High <200 HDL Cholesterol 69 mg/dL Normal >40 LDL Cholesterol 128 mg/dL High <100 Non-HDL-C 141 mg/dL Normal Cholesterol Risk Ratio 3.043 Normal <5 Microalbumin Random 04/15/2020 [facility] nter [address] [place], [place] [id number] [phone] Creatinine, Urine 13.9 mg/dL Normal Malb Urine Siemens < 5.0 mg/L Normal Carroll/Creat Ratio 35.9 MCG/MG High 0.0-30.0 2 CBC W/Diff 01/18/2020 [place] [address] [phone] WBC 6.1 K/mm3 4.0-10.0 RBC 4.36 M/mm3 4.00-5.50 HGB 13.0 gm/dL 12.0-16.0 HCT 38.9 % 36.0-48.8 MCV 89.2 fl 80-96 MCH 29.8 pg 27.0-31.0 MCHC 33.4 g/dL 32.0-36.0 RDW 12.5 % 10.0-14.5 PLT 221 K/mm3 172-450 MPV 9.9 fl 9.0-13.0 GR% 70.8 % 50-80.0 Ig% 0.2 % 0.0-0.2 Ly% 17.2 % Low 25.0-50.0 Mo% 9.3 % 2.0-10.0 Eo% 1.8 % 0-5.0 Ba% 0.7 % 0.0-2.0 GR# 4.3 K/mm3 2.0-8.00 Ig# 0.0 K/mm3 0.0-0.2 Ly# 1.1 K/mm3 1.0-5.0 Mo# 0.6 K/mm3 0.10-1.20 Eo# 0.1 K/mm3 0.0-0.5 Ba# 0.0 K/mm3 0.0-0.2 Laboratory test finding 01/18/[address] [address] [phone] Hgba1c 6.8 % High 3.8-5.6 3 Complete Metabolic Profile 01/18/[address] [address] [phone] Glu 156 mg/dL High 74-106 BUN 12 mg/dL 7-18 Cre 0.9 mg/dL 0.6-1.0 Na 142 mmol/L 136-145 K 3.2 mmol/L Low 3.5-5.1 CL 103 mmol/L 98-107 Co2 31 mmol/L 21-32 CA 8.8 mg/dL 8.5-10.1 Gap 8.0 mmol/L 5-12 GFR 65 mL/min 4 Ast 17 U/L 15-37 Alt 26 U/L 12-78 Alk 48 U/L 46-116 Tbili 0.2 mg/dL 0.2-1.0 TP 6.5 g/dL 6.4-8.2 Alb 3.7 gm/dL 3.4-5.0 1 Units are mL/min/1.73 m2 Chronic Kidney Disease Staging per NKF: Stage I & II GFR >=60 Normal to Mildly Decreased Stage III GFR 30-59 Moderately Decreased Stage IV GFR 15-29 Severely Decreased Stage V GFR <15 Very Little GFR Left ESRD GFR <15 on TERRAZZO JOURNEYMAN 2 THE [employer]ABET[employer] ATION STATES THAT MICROALBUMINURIA IS PRESENT IF THE MICROALBUMIN/CREATININE RATIO EXCEEDS 30 MCG/MG. THE THRESHOLD FOR CLINICAL ALBUMINURIA IS REACHED AT 300 MCG/MG. THE CLASSIFICATION OF A PATIENT SHOULD BE BASED UPON AT LEAST 2 OF 3 ABNORMAL RESULTS ON SPECIMENS COLLECTED WITHIN A 3 TO 6 MONTH TIME FRAME. 3 Diabetic > or = to 6.5% Prediabetes 5.7-6.4% Normal <5.7 4 GFR IS CALCULATED IN mL/min/ 1.73m2 NORMAL FUNCTION: >90 MILDLY DECREASED: 60-89 MILDY TO MODERATELY DECREASED: 45-59 MODERATELY TO SEVERELY DECREASED: 30-44 SEVERELY DECREASED: 15-29 RENAL FAILURE: <15 Procedures Date Code Description Status 02/16/2016 [id number] Colonoscopy Completed Medical Devices Description No Information Available Encounters Type Date Location Provider Dx Diagnosis Office Visit 05/13/2020 2:45p [facility] MARQUEZ Joiner Z00.00 Encntr for general adult medical exam w/ o abnormal findings E10.9 Type 1 diabetes mellitus wit hout complications E03.9 Hypothyroidism, unspecified G43.909 Migraine, unsp, not intracta ble, without status migrainosus Assessments Date Code Description Provider 05/13/2020 Z00.00 Encounter for genera l adult medical examination without abnormal findings MARQUEZ Joiner 05/13/2020 E10.9 Type 1 diabetes mellitus without complications MARQUEZ Joiner 05/13/2020 E03.9 Hypothyroidism, unspecified MARQUEZ Mckeon 05/13/2020 G43.909 Migraine, unspecifie d, not intractable, without status migrainosus MARQUEZ Joiner Plan of Treatment Future Appointment(s):* 11/04/2020 2:20 pm - MARQUEZ Joiner at [facility] 05/13/2020 - MARQUEZ Joiner* Z00.00 Encounter for general adult medical examination without abnormal findings * E10.9 Type 1 diabetes mellitus without complications * E03.9 Hypothyroidism, unspecified * G43.909 Migraine, unspecified, not intractable, without status migrainosus Functional Status Description No Information Available Mental Status Description No Information Available Referrals Description No Information Available
--- OUTSIDE RECORDS SUMMARY | 2020-08-18 15:44 | CCD | Continuity of Care Document ---
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 Type 2 diabetes mellitus Lesa Enamorado MD Onset: 01/30/20 18 Tobacco user Lesa Enamorado MD Onset: 01/29/2018 Hypothyroidism Lesa Enamorado MD Onset: 01/29/2018 Migraine Lesa Enamorado MD Onset: 01/29/2018 Social History Type Date Description Comments Sex Unknown Cigarette Use Former Cigarette Smoker 1-5 Ciga rettes Daily QUIT 33 YEARS AGO ETOH Use Never used alcohol Tobacco Use Start: Unknown End: Unknown Patient is a former smoker Smoking Status Reviewed: 04/21/20 Patient is a former smoker Allergies, Adverse Reactions, Alerts Description No Known Drug Allergies Medications Active Medications SIG Qnty Indications Ordering Provide r Date Humalog Kwikpen 100U nit/ML Solution Pen-Inject use as directed three times a day maximum daily dose = 30 un its 15units E10.649 Ruby Hill MD 05/09/2019 Lantus Solostar 100U nit/ML Solution Pen-Inject Use as Directed Once Daily 10 Units Maximum Daily Dose = 20 Units 15units E10.649 Ruby Hill MD 11/13/2018 Acetaminophen 325mg Tablets 2 tabs by mouth as needed every 4 hours for pain or fever Lesa Enamorado MD 01/29/2018 Synthroid 88mcg Tablets 1 by mouth every day 90tabs E10.649 Ruby Hill MD E06.3 Z01.89 Treximet 85-500mg Tablets take 1 tablet as needed for migraine, may repeat in 2 hours Unkno wn Vitamin E 400Unit Capsules 1 by mouth every day Unknown Coq10 100mg Capsules 1 by mouth every day Unknown Magnesium 200mg Chewtabs 1 po qd Unknown Vitamin D3 Ultra Strength 5000Unit Capsules 1 by mouth every day Unknown 000 B2 100mg Tablets 1 po qd Unknown Lecithin 3.1G Granules 1 po q d Unknown Lake 250mg Tablets 1 po qd Unknown Tejal Rosa Gold 2 po qd Unknown Cinnamon 500mg Capsules 1 by mouth every day Unknown BD Pen Needle/Mini/Ultra-Fine/31G X 5mm 31G X 5 mm Misc use as directed 4 x a day 400units E10.649 Ruby Hill MD Ajovy 225mg/1.5ML Soln Prefill Syr ivett once a month Unknown Immunizations Description No Information Available Vital Signs Date Vital Result Comment 07/23/2020 3:31pm BP Systolic 124 mmHg BP Diastolic 70 mmHg Heart Rate 64 /min Body Temperature 97.0 F Height 62.5 inches 5'2.50" Weight 134.00 lb BMI (Body Mass Index) 24.1 kg/m2 O2 % BldC Oximetry 98 % 04/21/2020 3:20pm BP Systolic 100 mmHg BP Diastolic 80 mmHg Heart Rate 60 /min Body Temperature 96.2 F Height 62.5 inches 5'2.50" Weight 132.50 lb BMI (Body Mass Index) 23.8 kg/m2 Results Test Acquired Date Facility Test Result H/L Range Note Laboratory test finding 07/23/2020 In House Glucose 199 Hemoglobin A1c 7.0 Laboratory test finding 04/21/2020 In House Hemoglobin A1c 7.2 Glucose 225 Lipid Panel 04/15/2020 [facility] ntr [address] [place] [address] [phone] Triglycerides Level 66 mg/dL Normal <150 Cholesterol Level 210 mg/dL High <200 HDL Cholesterol 69 mg/dL Normal >40 LDL Cholesterol 128 mg/dL High <100 Non-HDL-C 141 mg/dL Normal Cholesterol Risk Ratio 3.043 Normal <5 Complete Blood Count 04/15/[address] [facility] entr [address] [place] [address] [phone] White Blood Count 5.0 10 Normal 4.0-10.0 [...] % Normal 0-0 Comprehensive Metabolic Profil 04/15/[address] [address] [phone] - Glucose, Fasting 136 mg/dL High 70-100 Blood [...] Normal 3.2-5.2 Albumin/Globulin Ratio 1.3 Normal 1.2-2.2 Urine Micro/Creat Ratio Random 04/15/2020 [address] [place] [address] [phone] - Creatinine, Urine 13.9 mg/dL Normal Malb Urine Siemens < 5.0 mg/L Normal Carroll/Creat Ratio 35.9 MCG/MG High 0.0-30.0 2 1 Units are mL/min/1.73 m2 Chronic Kidney Disease Staging per NKF: Stage I & II GFR >=60 Normal to Mildly Decreased Stage III GFR 30-59 Moderately Decreased Stage IV GFR 15-29 Severely Decreased Stage V GFR <15 Very Little GFR Left ESRD GFR <15 on ACCOUNTING MACHINE MECHANIC 2 THE [employer]OC[employer] ATION STATES THAT MICROALBUMINURIA IS PRESENT IF THE MICROALBUMIN/CREATININE RATIO EXCEEDS 30 MCG/MG. THE THRESHOLD FOR CLINICAL ALBUMINURIA IS REACHED AT 300 MCG/MG. THE CLASSIFICATION OF A PATIENT SHOULD BE BASED UPON AT LEAST 2 OF 3 ABNORMAL RESULTS ON SPECIMENS COLLECTED WITHIN A 3 TO 6 MONTH TIME FRAME. Procedures Date Code Description Status 07/23/2020 77034 Amb Glucose Monitoring Interpret ation And Report Completed 04/21/2020 [id number] Amb Glucose Monitoring Interpret ation And Report Completed 01/09/2020 [id number] Diabetic Foot Exam Completed Medical Devices Description No Information Available Encounters Type Date Location Provider Dx Diagnosis Office Visit 07/23/2020 3:45p DR. Ruby Hill MD E 10.649 Type 1 diabetes mellitus with hypoglycemia without coma E06.3 Autoimmune thyroiditis Z01.89 Encounter for other specifie d special examinations Office Visit 04/21/2020 3:30p DR. Ruby Hill MD E 10.649 Type 1 diabetes mellitus with hypoglycemia without coma E06.3 Autoimmune thyroiditis Z01.89 Encounter for other specifie d special examinations Assessments Date Code Description Provider 07/23/2020 E10.649 Type 1 diabetes mellitus with hy poglycemia without coma Ruby Hill MD 07/23/2020 E06.3 Autoimmune thyroiditis Ruby Hill MD 07/23/2020 Z01.89 Encounter for other specified sp ecial examinations Ruby Hill MD 04/21/2020 E10.649 Type 1 diabetes mellitus with hy poglycemia without coma Ruby Hill MD 04/21/2020 E06.3 Autoimmune thyroiditis Ruby Hill MD 04/21/2020 Z01.89 Encounter for other specified sp ecial examinations Ruby Hill MD Plan of Treatment 07/23/2020 - Ruby Hill MD* E10.649 Type 1 diabetes mellitus with hypoglycemia without coma* Comments:* patient has type 1 diabetes since summer 2017.in office a1c= 7.0, 7.2%, prior 6.7%bs= 199prior: 7.6%. ,6.9 %, 7.1% up from 6.5%DEXCOM patient has then using her sensor since her last appointment and she feels that it is helping her tremendously.. She feels that it is helping her tremendously. She is benefiting from seeing the arrow either stable up or down to help her decide on how much insulin to take. DEXCOM Downloaded and reviewedAverage blood sugar = 167Time in range = 66%.helping herCurrent dosing: Continue Lantus 10 8-9 mealtime insulin NovoLog 3 units with meals.-Recommendations: No change in insulin dosing. She has self increased her NovoLog based on her DEXCOM readings since upgrading her phone in May she has been unable to upload to the cloud however * Follow up:* 3months- Type 1 DEXCOM ++SURVEY+++ * E06.3 Autoimmune thyroiditis* Comments:* per pcp * Z01.89 Encounter for other specified special examinations* Comments:* Foot Exam performed 01/09/2020 . Normal light touch and monofilament testing and vibration. Functional Status Description No Information Available Mental Status Description No Information Available Referrals Description No Information Available
[2020-08-18] MEDS ORDERED: LANTINJ4 SC (15:57)
[2020-08-18] MEDS ORDERED: SYNT88TA2 (15:57)
[2020-08-18] MEDS ORDERED: HUMA100I5 (15:57)
--- NOTE | 2020-08-18 16:27 | REP ---
INDICATION: CHEST PAIN. COMPARISON: 03/15/2006. TECHNIQUE: SINGLE PORTABLE AP VIEW OF THE CHEST WAS PERFORMED. FINDINGS: THERE IS NO ACUTE INFILTRATE OR PULMONARY EDEMA. LUNGS ARE CLEAR. HEART IS NOT SIGNIFICANTLY ENLARGED. MEDIASTINAL SILHOUETTE IS UNREMARKABLE. THE VISUALIZED OSSEOUS STRUCTURES ARE INTACT. IMPRESSION: NO ACUTE PULMONARY DISEASE. <Electronically signed by Christos Martinez > 08/18/20 [id number]
[2020-08-18 16:35] LABS: BASO # 0.1 10^3/uL (0.0-0.2); BASO % 1.2 % (0.0-1.0); EOS # 0.1 10^3/uL (0.0-0.5); EOS % 2.5 % (0.0-3.0); HEMATOCRIT 39.4 % (36.0-47.0); HEMOGLOBIN 12.9 g/dl (12.0-15.5); LYMPH % 21.3 % (24.0-44.0); MEAN CORPUSCULAR HEMOGLOBIN 29.9 pg (27.0-33.0); MEAN CORPUSCULAR HGB CONC 32.7 g/dl (32.0-36.5); MEAN CORPUSCULAR VOLUME 91.2 fl (80.0-96.0); MONO # 0.5 10^3/uL (0.0-0.8); MONO % 9.3 % (2.0-8.0); NEUTROPHILS # 3.2 10^3/uL (1.5-8.5); NEUTROPHILS % 65.5 % (36.0-66.0); PLATELET COUNT, AUTOMATED 199 10^3/uL (150-450); RED BLOOD COUNT 4.32 10^6/uL (4.00-5.40); WHITE BLOOD COUNT 4.8 10^3/uL (4.0-10.0)
[2020-08-18] MEDS ORDERED: NS 1,000 ML IV ONE (16:45)
[2020-08-18 16:54] LABS: ALBUMIN 3.9 GM/DL (3.2-5.2); ALT/SGPT 28 U/L (12-78); BILIRUBIN,DIRECT < 0.1 MG/DL (0.0-0.2); BILIRUBIN,TOTAL 0.3 MG/DL (0.2-1.0); FREE T4 1.26 NG/DL (0.76-1.46); LIPASE 238 U/L (73-393); NT-PRO BNP 84 PG/ML (<125); TOTAL PROTEIN 6.6 GM/DL (6.4-8.2)
--- NOTE | 2020-08-18 17:01 | ECGEPIP ---
[facility] - ED Test Date: 2020-08-18 Pat Name: MAY PADGETT Department: Room: - Gender: Female Water Control Supervisor: amalia : 1965 Requested By: Trixie Huntley Order Number: [id number] Reading MD: Rivera Ellison Measurements Intervals [place] Rate: 68 P: 46 SC: 124 QRS: 71 QRSD: 86 T: 95 QT: 398 QTc: 423 Interpretive Statements Normal sinus rhythm Nonspecific ST-T wave abnormalities Similar to tracing done 01-25-18 Electronically Signed on 08-18-2020 17:01:40 EST by Rivera Ellison
--- OUTSIDE RECORDS SUMMARY | 2020-08-18 17:23 | CCD ---
Author Author [facility] Address Unknown Phone Unavailable Support Name Relationship Address Phone GUZMAN CORTEZ Next Of Kin [address] [place] [address] INDRIVSCH Next Of Kin [address] [address] [place] [address] PATRICIA GAN Next Of [facility] [place] [id number] [place] [address] PATRICIA FRANCE Next Of [facility] [place] [id number] [place] [phone] KARRIE PADGETT Next Of Kin [address] [place] [address] INDRVCTFito [facility] [place] [address] Mita PADGETT Next Of Kin [address] [facility] [address] [place] [address] JAMEE PADGETT Next Of Kin [address] [place] [address] [place] [address] [facility] Next Of Kin [phone] [place] [address] [address] [place] [address] [facility] Next Of Kin [address] [facility] [address] [place] [address] ANGEL[place] [phone] MALACHI SILVA Next Of Kin [address] [place] [address] Patricia Gan [place] [address] [place] [address] Un[place] [address] Unavailable Care Team Providers Care Car Seat Coverer Name Role Phone Marcelo, Gabi MD Unavailable [...] Laila Padgett MD Unavailable Unavailable Saeid, Susie DIRECTOR OF INSTITUTIONAL SALES Unavailable Unavailable Saeid, Susie DIRECTOR OF INSTITUTIONAL SALES Unavailable Unavailable Saeid, Susie DIRECTOR OF INSTITUTIONAL SALES Unavailable Unavailable Saeid, Susie DIRECTOR OF INSTITUTIONAL SALES Unavailable Unavailable Saeid, Susie DIRECTOR OF INSTITUTIONAL SALES Unavailable Unavailable Saeid, Susie DIRECTOR OF INSTITUTIONAL SALES Unavailable Unavailable Saeid, Susie DIRECTOR OF INSTITUTIONAL SALES Unavailable Unavailable Saeid, Susie DIRECTOR OF INSTITUTIONAL SALES Unavailable Unavailable Saeid, Susie DIRECTOR OF INSTITUTIONAL SALES Unavailable Unavailable Saeid, Susie DIRECTOR OF INSTITUTIONAL SALES Unavailable Unavailable Saeid, Susie DIRECTOR OF INSTITUTIONAL SALES Unavailable Unavailable Saeid, Susie DIRECTOR OF INSTITUTIONAL SALES Unavailable Unavailable Saeid, Susie DIRECTOR OF INSTITUTIONAL SALES Unavailable Unavailable Saeid, Susie DIRECTOR OF INSTITUTIONAL SALES Unavailable Unavailable Saeid, Susie DIRECTOR OF INSTITUTIONAL SALES Unavailable Unavailable Saeid, Susie DIRECTOR OF INSTITUTIONAL SALES Unavailable Unavailable Saeid, Susie DIRECTOR OF INSTITUTIONAL SALES Unavailable Unavailable Saeid, Susie DIRECTOR OF INSTITUTIONAL SALES Unavailable Unavailable Saeid, Susie DIRECTOR OF INSTITUTIONAL SALES Unavailable Unavailable Saeid, Susie DIRECTOR OF INSTITUTIONAL SALES Unavailable Unavailable Saeid, Susie DIRECTOR OF INSTITUTIONAL SALES Unavailable Unavailable Saeid, Susie DIRECTOR OF INSTITUTIONAL SALES Unavailable Unavailable Saeid, Susie DIRECTOR OF INSTITUTIONAL SALES Unavailable Unavailable Saeid, Susie DIRECTOR OF INSTITUTIONAL SALES Unavailable Unavailable Saeid, Susie DIRECTOR OF INSTITUTIONAL SALES Unavailable Unavailable Saeid, Susie DIRECTOR OF INSTITUTIONAL SALES Unavailable Unavailable Saeid, Susie DIRECTOR OF INSTITUTIONAL SALES Unavailable Unavailable Saeid, Susie DIRECTOR OF INSTITUTIONAL SALES Unavailable Unavailable Saeid, Susie DIRECTOR OF INSTITUTIONAL SALES Unavailable Unavailable Saeid, Susie DIRECTOR OF INSTITUTIONAL SALES Unavailable Unavailable Saeid, Susie DIRECTOR OF INSTITUTIONAL SALES Unavailable Unavailable Saeid, Susie DIRECTOR OF INSTITUTIONAL SALES Unavailable Unavailable Saeid, Susie DIRECTOR OF INSTITUTIONAL SALES Unavailable Unavailable Saeid, Susie DIRECTOR OF INSTITUTIONAL SALES Unavailable Unavailable Saeid, Susie DIRECTOR OF INSTITUTIONAL SALES Unavailable Unavailable Saeid, Susie DIRECTOR OF INSTITUTIONAL SALES Unavailable Unavailable Saeid, Susie DIRECTOR OF INSTITUTIONAL SALES Unavailable Unavailable Saeid, Susie DIRECTOR OF INSTITUTIONAL SALES Unavailable Unavailable Saeid, Susie DIRECTOR OF INSTITUTIONAL SALES Unavailable Unavailable Saeid, Susie DIRECTOR OF INSTITUTIONAL SALES Unavailable Unavailable Saeid, Susie DIRECTOR OF INSTITUTIONAL SALES Unavailable Unavailable Saeid, Susie DIRECTOR OF INSTITUTIONAL SALES Unavailable Unavailable Saeid, Susie DIRECTOR OF INSTITUTIONAL SALES Unavailable Unavailable Saeid, Susie DIRECTOR OF INSTITUTIONAL SALES Unavailable Unavailable Saeid, Susie DIRECTOR OF INSTITUTIONAL SALES Unavailable Unavailable Saeid, Susie DIRECTOR OF INSTITUTIONAL SALES Unavailable Unavailable Saeid, Susie DIRECTOR OF INSTITUTIONAL SALES Unavailable Unavailable Saeid, Susie DIRECTOR OF INSTITUTIONAL SALES Unavailable Unavailable Saeid, Susie DIRECTOR OF INSTITUTIONAL SALES Unavailable Unavailable Saeid, Susie DIRECTOR OF INSTITUTIONAL SALES Unavailable Unavailable Saeid, Susie DIRECTOR OF INSTITUTIONAL SALES Unavailable Unavailable Saeid, Susie DIRECTOR OF INSTITUTIONAL SALES Unavailable Unavailable Saeid, Susie DIRECTOR OF INSTITUTIONAL SALES Unavailable Unavailable MohitbekKaye Vee MD Unavailable Unavailable Dombek-Sanya, Kaye Ewing MD Unavailable Unavailable Mohitbek-Sanya, Kaye Ewing MD Unavailable Unavailable Mohitbek-Sanya, Kaye Ewing MD Unavailable Unavailable Dombek-Sanya, Kaye [...] J Barbara ANP Unavailable Unavailable NOEMY, J Brabara ANP Unavailable Unavailable NOEMY, J Barbara ANP [...] Unavailable NOEMY, J Barbara ANP Unavailable Unavailable NEOMY, J Barbara ANP Unavailable Unavailable NOEMY, J [...] Unavailable NOEMY, J Barbara ANP Unavailable Unavailable NOEYM J Barbara ANP Unavailable Unavailable Re-disclosure Warning [...] is protected by Article 27-F of the [facility] Public Health law. If you continue you may have access to information: Regarding HIV / AIDS; Provided by facilities licensed or operated by the [facility] Office of Mental Health; or Provided by the [facility] Office for People With Developmental Disabilities. If such information is present, then the following [facility] mandated warning applies: This information has [...] law may result in a fine or group home sentence or both. A general authorization [...] Physical Therapy 07/23 02:45:00 PM EST [facility] Outpatient Attender: Barbara Ashby 01:45:00 PM EST [facility] ([facility] ) Outpatient Attender: Gabi Robertson MD Main office - [place] 05/13/2020 12:00:00 PM EST [facility] ([facility]) Outpatient Attender: Ruby Padgett MD Physical Therapy 04/21 03:30:00 PM EDT [facility] ([facility]) Emergency Attender: MARLEE HERRERAReferrer: Susie ROSALESP EMERGENCY ROOM-ER 01/18/2020 09:11:00 PM EDT - 01/18/2020 10:39:[address] [facility] Patient discharged. Outpatient Attender: Gabi Robertson MD Main office - [place] 01/13/2020 10:15:00 AM EDT [facility] ([facility]) Outpatient Attender: Ruby Padgett MD Physical Therapy 01/08 09:45:00 AM EDT [facility] ([facility]) Outpatient Attender: Ruby Padgett MD Physical Therapy 10/20 02:30:00 PM EDT [facility] ([facility]) Outpatient Attender: Gabi Robertson MD Main office - [place] 10/14/2019 11:45:00 AM EDT [facility] ([facility]) Outpatient Attender: Susie Breaux [facility] Gustavo Ashby 0 09/02/2019 03:00:00 PM EDT [facility] ([facility] ) Emergency Attender: FITO GALLEGOSReferrer: Susie hyde [facility] 12/31/2018 03:16:00 PM EDT - 12/31/2018 05:25:00 PM [facility] Emergency Attender: Kaylin Steve MD EMERGENCY ROOM-E R 09/10/2016 01:48:00 PM EDT - 09/10/2016 03:00:[address] [facility] Emergency Attender: VALORIE CLAROS EMERGENCY ROOM-ER 0 02/12/2014 02:05:00 AM EDT - 02/12/2014 03:41:[address] [facility] Immunizations Vaccine Date Status Description Data Source(s) This CVX code allows reporting of a vacc ination when formulation is unknown (for example, when recording a Influenza vaccination when noted on a vaccination card) 04/15/2020 02:47:00 PM EDT completed MEDEN T ([facility]) Shingrix Zoster Vaccine (HZV), Recombinant, Subunit, A djuvanted 03/07/2020 01:19:00 PM EDT completed [facility] ([facility]) VARICELLA-ZOSTER VIRUS GLYCOPROTEIN E,REC/AS01B ADJUVA NT/PF 03/07/2020 12:00:00 AM EDT completed [facility] Medications Medication Brand Name Start Date Product Form Dose Route Admi nistrative Instructions Pharmacy Instructions Status Indications Reaction Description Data Source(s) Lidocaine 40 MG/ML Topical Cream Lidocaine 05/13/2020 12:00:00 AM EST active [facility] ([facility] ) 88 mcg 03/09/2020 12:00:00 [...] type / Coverage type Policy ID Covered green party ID Covered green party's relationship to hoffman Policy Hoffman Plan Information UMR [facility] [id number] SP [id number] UMR [id number] S [id number] POMCO [id number] S [id number] POMCO [id number] S [id number] AIG CLM# [id number] S CL M# [id number] UMR O [id number] S [id number] UMR [id number] S [id number] [employer] (pr) Medigap Part B [id number] Self [id number] Umr (pr) Commercial [id number] Self [id number] Umr Commercial [id number] Self [id number] [employer] Health Maintenance Organization (HMO) [id number] Se lf [id number] UMR U [id number] Self [id number] [employer]/Umr (Old) Medigap Part B [id number] Self [id number] Umr (New [employer]) Commercial [id number] Self [id number] [employer]/Umr (Old) Medigap Part B [id number] Self [id number] ANSI-Commercial [id number] ANSI-Commercial [id number] ANSI-Commercial [id number] [employer]/Umr (Old) Medigap Part B [id number] Self [id number] ANSI-Commercial [id number] ANSI-Commercial [id number] ANSI-Commercial [id number] [employer]/Umr (Old) [facility] Part B [id number] Self [id number] ANSI-Commercial [id number] ANSI-Commercial [id number] [employer]/Umr (Old) [facility] Part B [id number] Self [id number] UMR [facility] [id number] SP [id number] POM[employer] [id number] SP [id number] UMR -O/P [id number] 18 [id number] [employer] [id number] SP [id number] [employer] Ppo Commercial [id number] Self [id number] [employer] Maintenance [employer] (HMO) [id number] Se lf [id number] POM[employer] [id number] SP [id number] [employer] Ppo Commercial [id number] Self [id number] [employer] (pr) Commercial [id number] Self [id number] [employer] Ppo Commercial Self POMCO-O/P [id number] 18 [id number] [employer] (pr) Commercial Self [employer]OM[employer] PPO O [id number] S [id number] [employer] (HMO) Se lf [employer] Commercial Self [id number] Problems, Conditions, and Diagnoses Code Display Name Description Problem Type Effective Dates Data Source(s) Z87.891 Personal history of nicotine dependence PERSONAL HISTORY OF NICOTINE DEPENDENCE Diagnosis 01/18/2020 09:11:00 PM EDT [facility] Z79.899 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 E10.649 Type 1 diabetes mellitus with hypoglycem ia without coma TYPE 1 DIABETES MELLITUS WITH HYPOGLYCEMIA WITHOUT COMA Diagnosis 01/18/2020 09:11:[address] [facility] Surgeries/Procedures Procedure Description Date Indications Data Source(s) Amb Glucose Monitoring Interpretation And Report 07/23 12:00:00 AM EST [facility] ([facility]) Amb Glucose Monitoring Interpretation And Report 04/21 12:00:00 AM [facility] Diabetic Foot Exam 01/09/2020 12:00:00 AM EDT [facility] ([facility] ) Amb Glucose Monitoring Interpretation And Report 01/08 12:00:00 AM EDT [facility] ([facility] ) Amb Glucose Monitoring Interpretation And Report 10/20 12:00:00 AM EDT [facility] ([facility] Results ID Date Data Source [id number] 07/23/2020 03:39:00 PM EST [facility] ([facility]) Name Value Range Interpretation Code Description Data Evelia rce(s) Supporting Document(s) Glucose [Mass/volume] in Serum or Plasma 199 [facility] ([facility] ) Hemoglobin A1c/Hemoglobin.total in Blood 7.0 [facility] ([facility]) ID Date Data Source [id number] 04/21/2020 03:33:00 PM EDT [facility] ([facility] ) Name Value Range Interpretation Code Description Data Evelia rce(s) Supporting Document(s) Hemoglobin A1c/Hemoglobin.total in Blood 7.2 [facility] ([facility]) Glucose [Mass/volume] in Serum or Plasma 225 [facility] ([facility]) ID Date Data Source [id number] 04/15/2020 10:55:00 AM EDT [facility] ([facility] Name Value Range Interpretation Code Description Data Evelia rce(s) Supporting Document(s) Creatinine [Mass/volume] in Urine 13.9 mg/dL [facility] ([facility]) Microalbumin [Mass/volume] in Urine Laboratory test [facility] Microalbumin/Creatinine [Mass Ratio] in Urine 35.9 MCG/MG 0.0-30.0 [facility] THE [place] [employer] STATES THAT MICROALBUMINURIA IS PRESENT IF THE MICROALBUMIN/CREATININE RATIO EXCEEDS 30 MCG/MG. THE THRESHOLD FOR CLINICAL ALBUMINURIA IS REACHED AT 300 MCG/MG. THE CLASSIFICATION OF A PATIENT SHOULD BE BASED UPON AT LEAST 2 OF 3 ABNORMAL RESULTS ON SPECIMENS COLLECTED WITHIN A 3 TO 6 MONTH TIME FRAME. ID Date Data Source [id number] 04/15/2020 10:55:00 AM EDT [facility] ([facility] ) Name Value Range Interpretation Code Description Data Evelia rce(s) Supporting Document(s) Glucose, Fasting 136 mg/dL 70-100 [facility] ([facility] ) Creatinine For GFR 0.79 mg/dL 0.55-1.30 [facility] ([facility]) Blood Urea Nitrogen 15 mg/dL 7-18 [facility] ([facility] ) Potassium Serum 4.2 meq/L 3.5-5.1 [facility] ([facility]) Glomerular Filtration Rate Laboratory test result [facility] ([facility]) <content>Units are mL/min/1.73 m2</content>
<content></content>
<content>Chronic Kidney Disease Staging per NKF:</content>
<content></content>
<content>Stage I & II GFR >=60 Normal to Mildly Decreased</content>
<content>Stage III GFR 30-59 Moderately Decreased</content>
<content>Stage IV GFR 15-29 Severely Decreased</content>
<content>Stage V GFR <15 Very Little GFR Left</content>
<content>ESRD GFR <15 on FELT MACHINE MECHANIC</content>
<content></content> Sodium Level 140 meq/L 136-145 [facility] ([facility] ) Chloride Level 105 meq/L 98-107 [facility] ([facility] ) Carbon Dioxide Level 30 meq/L 21-32 [facility] ([facility]) Anion Gap 5 meq/L 8-16 [facility] ([facility] ) Calcium Level 9.2 mg/dL 8.5-10.1 [facility] ([facility]) Ast/Sgot 11 U/L 7-37 [facility] ([facility] ) Alkaline Phosphatase 53 U/L 45-117 [facility] Alt/SGPT 21 U/L 12-78 [facility] Bilirubin,Total 0.4 mg/dL 0.2-1.0 [facility] ([facility]) Albumin/Globulin Ratio 1.3 1.2-2.2 [facility] ([facility]) Albumin 3.9 GM/DL 3.2-5.2 [facility] Total Protein 6.8 GM/DL 6.4-8.2 [facility] ([facility]) ID Date Data Source [id number] 04/15/2020 10:55:00 AM EDT [facility] ([facility]) Name Value Range Interpretation Code Description Data Evelia rce(s) Supporting Document(s) White Blood Count 5.0 10 4.0-10.0 [facility] ([facility]) Red Blood Count 4.71 10 4.00-5.40 [facility] ([facility]) Hematocrit 44.0 % 36.0-47.0 [facility] Hemoglobin 14.1 g/dL 12.0-15.5 [facility] ([facility]) Mean Corpuscular Volume 93.4 fl 80.0-96.0 M EDENT ([facility]) Mean Corpuscular Hemoglobin 29.9 pg 27.0-33.0 [facility] ([facility]) Mean Corpuscular HGB Conc 32.0 g/dL 32.0-36.5 [facility] ([facility]) Red Cell Distribution Width 12.4 % 11.5-14.5 [facility] ([facility]) Platelet Count, Automated 235 10 150-450 [facility] ([facility]) Nucleated Red Blood Cell % 0.0 % 0-0 [facility] ([facility]) ID Date Data Source [id number] 04/15/2020 10:55:00 AM EDT [facility] ([facility]) Name Value Range Interpretation Code Description Data Evelia rce(s) Supporting Document(s) Triglycerides Level 66 mg/dL [facility] Cholesterol Level 210 mg/dL [facility] HDL Cholesterol 69 mg/dL [facility] ([facility]) Non-HDL-C 141 mg/dL [facility] ([facility]) LDL Cholesterol 128 mg/dL [facility] ([facility]) Cholesterol Risk Ratio 3.043 [facility] ([facility]) ID Date Data Source [id number] 04/15/2020 10:55:00 AM EDT [facility] ([facility]) Name Value Range Interpretation Code Description Data Evelia rce(s) Supporting Document(s) Malb Urine Siemens Laboratory test result [facility] ([facility]) Creatinine, Urine 13.9 mg/dL [facility] ([facility]) Carroll/Creat Ratio 35.9 MCG/MG 0.0-30.0 [facility] ([facility]) THE [place] [employer] STATES THAT MICROALBUMINURIA IS PRESENT IF THE MICROALBUMIN/CREATININE RATIO EXCEEDS 30 MCG/MG. THE THRESHOLD FOR CLINICAL ALBUMINURIA IS REACHED AT 300 MCG/MG. THE CLASSIFICATION OF A PATIENT SHOULD BE BASED UPON AT LEAST 2 OF 3 ABNORMAL RESULTS ON SPECIMENS COLLECTED WITHIN A 3 TO 6 MONTH TIME FRAME. ID Date Data Source [id number] 04/15/2020 10:55:00 AM EDT [facility] ([facility]) Name Value Range Interpretation Code Description Data Evelia rce(s) Supporting Document(s) Triglycerides Level 66 mg/dL [facility] ([facility]) Cholesterol Level 210 mg/dL [facility] ([facility]) HDL Cholesterol 69 mg/dL [facility] ([facility]) Non-HDL-C 141 mg/dL [facility] [facility] LDL Cholesterol 128 mg/dL [facility] ([facility]) Cholesterol Risk Ratio 3.043 [facility] ([facility]) ID Date Data Source [id number] 04/15/2020 10:55:00 AM EDT [facility] ([facility]) Name Value Range Interpretation Code Description Data Evelia rce(s) Supporting Document(s) Glucose, Fasting 136 mg/dL 70-100 [facility] ([facility]) Creatinine For GFR 0.79 mg/dL 0.55-1.30 [facility] ([facility]) Glomerular Filtration Rate Laboratory test result [facility] ([facility]) <content>Units are mL/min/1.73 m2</content>
<content></content>
<content>Chronic Kidney Disease Staging per NKF:</content>
<content></content>
<content>Stage I & II GFR >=60 Normal to Mildly Decreased</content>
<content>Stage III GFR 30-59 Moderately Decreased</content>
<content>Stage IV GFR 15-29 Severely Decreased</content>
<content>Stage V GFR <15 Very Little GFR Left</content>
<content>ESRD GFR <15 on FELT MACHINE MECHANIC</content>
<content></content> Blood Urea Nitrogen 15 mg/dL 7-18 [facility] ([facility]) Chloride Level 105 meq/L 98-107 [facility] ([facility]) Potassium Serum 4.2 meq/L 3.5-5.1 [facility] ([facility]) Sodium Level 140 meq/L 136-145 [facility] ([facility]) Calcium Level 9.2 mg/dL 8.5-10.1 [facility] ([facility]) Anion Gap 5 meq/L 8-16 [facility] [facility] Carbon Dioxide Level 30 meq/L 21-32 [facility] ([facility]) Alkaline Phosphatase 53 U/L 45-117 [facility] ([facility]) Alt/SGPT 21 U/L 12-78 [facility] [facility] Ast/Sgot 11 U/L 7-37 [facility] [facility] Bilirubin,Total 0.4 mg/dL 0.2-1.0 [facility] ([facility]) Total Protein 6.8 GM/DL 6.4-8.2 [facility] ([facility]) Albumin 3.9 GM/DL 3.2-5.2 [facility] [facility] Albumin/Globulin Ratio 1.3 1.2-2.2 [facility] ([facility]) ID Date Data Source [id number] 04/15/2020 10:55:00 AM EDT [facility] ([facility]) Name Value Range Interpretation Code Description Data Evelia rce(s) Supporting Document(s) Red Blood Count 4.71 10 4.00-5.40 [facility] ([facility]) White Blood Count 5.0 10 4.0-10.0 [facility] ([facility]) Mean Corpuscular Volume 93.4 fl 80.0-96.0 [facility] ([facility]) Hematocrit 44.0 % 36.0-47.0 [facility] [facility]) Mean Corpuscular Hemoglobin 29.9 pg 27.0-33.0 ME DENT ([facility]) Hemoglobin 14.1 g/dL 12.0-15.5 [facility] [facility]) Platelet Count, Automated 235 10 150-450 MEDE NT ([facility]) Mean Corpuscular HGB Conc 32.0 g/dL 32.0-36.5 MEDE NT ([facility]) Red Cell Distribution Width 12.4 % 11.5-14.5 ME [facility] ([facility]) Nucleated Red Blood Cell % 0.0 % 0-0 MED [facility] ([facility]) ID Date Data Source [id number] 01/19/2020 04:34:00 AM EDT [facility] Patient: MAY PADGETT Re port - [facility].VisitID: [id number] [place] [address] [phone], FRegistration Date/Time: 01/18/2020 20:31 Weight:58.5 kg (S). Height/Length:63 inches (S). BMI:22.9 FAMILY HISTORYNo significant family medical history. (Electronically signed by Marlee Herrera M.D. 01/19/2020 03:48) Name Value Range Interpretation Code Description Data Evelia rce(s) Supporting Document(s) ID Date Data Source [id number] 01/18/2020 09:30:00 PM EDT [facility] ([facility]) Name Value Range Interpretation Code Description Data Evelia rce(s) Supporting Document(s) BUN 12 mg/dL 7-18 [facility] ([facility] [place] [facility]) Na 142 mmol/L 136-145 [facility] [facility]) Cre 0.9 mg/dL 0.6-1.0 [facility] [facility]) Glu 156 mg/dL 74-106 [facility] [facility]) Co2 31 mmol/L 21-32 [facility] [facility]) CL 103 mmol/L 98-107 [facility] [facility]) K 3.2 mmol/L 3.5-5.1 [facility] [facility] GFR 65 mL/min [facility] [facility]) <content>GFR IS CALCULATED IN mL/min/1.73m2</content>
<content></content>
<content>NORMAL FUNCTION: >90</content>
<content>MILDLY DECREASED: 60-89</content>
<content>MILDY TO MODERATELY DECREASED: 45-59</content>
<content>MODERATELY TO SEVERELY DECREASED: 30-44</content>
<content>SEVERELY DECREASED: 15- 29</content>
<content>RENAL FAILURE: <15</content>
<content></content> Ast 17 U/L 15-37 [facility] ([facility] CA 8.8 mg/dL 8.5-10.1 [facility] ([facility]) Gap 8.0 mmol/L 5-12 [facility] Alk 48 U/L 46-116 [facility] ([facility]) Tbili 0.2 mg/dL 0.2-1.0 [facility] ([facility]) Alt 26 U/L 12-78 [facility] ([facility]) TP 6.5 g/dL 6.4-8.2 [facility] ([facility]) Alb 3.7 gm/dL 3.4-5.0 [facility] ([facility]) ID Date Data Source [id number] 01/18/2020 09:30:00 PM EDT [facility] ([facility]) Name Value Range Interpretation Code Description Data Evelia rce(s) Supporting Document(s) Hemoglobin A1c/Hemoglobin.total in Blood 6.8 % 3.8-5.6 [facility] ([facility]) <content>Diabetic > or = to 6.5%</conten t>
<content>Prediabetes 5.7- 6.4%</content>
<content>Normal <5.7</content>
<content></content> ID Date Data Source [id number] 01/18/2020 09:30:00 PM EDT [facility] ([facility]) Name Value Range Interpretation Code Description Data Evelia rce(s) Supporting Document(s) WBC 6.1 K/mm3 4.0-10.0 [facility] ([facility]) RBC 4.36 M/mm3 4.00-5.50 [facility] HCT 38.9 % 36.0-48.8 [facility] ([facility]) HGB 13.0 gm/dL 12.0-16.0 [facility]) MCV 89.2 fl 80-96 [facility] ([facility]) RDW 12.5 % 10.0-14.5 [facility] ([facility]) MCH 29.8 pg 27.0-31.0 [facility] ([facility]) MCHC 33.4 g/dL 32.0-36.0 [facility] ([facility]) PLT 221 K/mm3 172-450 [facility] ([facility]) GR% 70.8 % 50-80.0 [facility] ([facility]) Ig% 0.2 % 0.0-0.2 [facility] ([facility]) MPV 9.9 fl 9.0-13.0 [facility] ([facility]) Mo% 9.3 % 2.0-10.0 [facility] ([facility]) Ly% 17.2 % 25.0-50.0 [facility] ([facility]) Eo% 1.8 % 0-5.0 [facility] ([facility]) Ig# 0.0 K/mm3 0.0-0.2 [facility] ([facility]) GR# 4.3 K/mm3 2.0-8.00 [facility] ([facility]) Ba% 0.7 % 0.0-2.0 [facility] ([facility]) Ly# 1.1 K/mm3 1.0-5.0 [facility] ([facility]) Mo# 0.6 K/mm3 0.10-1.20 [facility] ([facility]) Ba# 0.0 K/mm3 0.0-0.2 [facility] ([facility]) Eo# 0.1 K/mm3 0.0-0.5 [facility] ([facility]) ID Date Data Source [id number] 01/18/2020 10:03:00 PM EDT [facility] TSYSORDER [id number] Name Value Range Interpretation Code Description Data Evelia rce(s) Supporting Document(s) GLUCOSE 156 mg/dL 74-106 [facility] BLOOD UREA NITROGEN 12 mg/dL 7-18 [facility] ital CREATININE 0.9 mg/dL 0.6-1.0 [facility] SODIUM 142 mmol/L 136-145 [facility] POTASSIUM 3.2 mmol/L 3.5-5.1 L [facility] CHLORIDE 103 mmol/L 98-107 [facility] CO2 31 mmol/L 21-32 [facility] CALCIUM 8.8 mg/dL 8.5-10.1 [facility] ANION GAP 8.0 mmol/L 5-12 [facility] GLOMERULAR FILTRATION RATE 65 mL/min [facility] GFR IS CALCULATED IN mL/min/1.73m2 TYE L FUNCTION: >90MILDLY DECREASED: 60-89MILDY TO MODERATELY DECREASED: 45-59 MODERATELY TO SEVERELY DECREASED: 30-44SEVERELY DECREASED: 15-29RENAL FAILURE: <15 AST 17 U/L 15-37 [facility] ALT 26 U/L 12-78 [facility] ALKALINE PHOSPHATASE 48 U/L 46-116 [facility]ital TOTAL BILIRUBIN 0.2 mg/dL 0.2-1.0 [facility] TOTAL PROTEIN 6.5 g/dl 6.4-8.2 [facility] ALBUMIN 3.7 gm/dL 3.4-5.0 [facility] ID Date Data Source [id number] 01/18/2020 09:58:00 PM EDT [facility] l TSYSORDER [id number] Name Value Range Interpretation Code Description [facility] Document(s) HGBA1C 6.8 % 3.8-5.6 H [facility] Diabetic > or = to 6.5%Prediabetes 5.7-6 .4%Normal <5.7 ID Date Data Source [id number] 01/18/2020 09:39:00 PM EDT [facility] l TSYSORDER [id number] Name Value Range Interpretation Code Description Data [facility] Supporting Document(s) WHITE BLOOD COUNT 6.1 K/mm3 4.0-10.0 [facility] al RED BLOOD COUNT 4.36 M/mm3 4.00-5.50 [facility] HEMOGLOBIN 13.0 gm/dL 12.0-16.0 [facility] HEMATOCRIT 38.9 % 36.0-48.8 [facility] MEAN CELL VOLUME 89.2 fl 80-96 [facility] MEAN CORPUSCULAR HEMOGLOBIN 29.8 pg 27.0-31.0 [facility] MEAN CORPUSCULAR HGB CONC 33.4 g/dl 32.0-36.0 [facility] RED CELL DISTRIBUTION WIDTH 12.5 % 10.0-14.5 [facility] PLATELET COUNT 221 K/mm3 172-450 [facility] MEAN PLATELET VOLUME 9.9 fl 9.0-13.0 [facility] pital GRAN % 70.8 % 50-80.0 [facility] IG% 0.2 % 0.0-0.2 [facility] LYMPH % 17.2 % 25.0-50.0 L [facility] MONO % 9.3 % 2.0-10.0 [facility] EOS % 1.8 % 0-5.0 [facility] BASO % 0.7 % 0.0-2.0 [facility] GRAN # 4.3 K/mm3 2.0-8.00 [facility] IG# 0.0 K/mm3 0.0-0.2 [facility] LYMPH # 1.1 K/mm3 1.0-5.0 [facility] MONO # 0.6 K/mm3 0.10-1.20 [facility] EOS # 0.1 K/mm3 0.0-0.5 [facility] BASO # 0.0 K/mm3 0.0-0.2 [facility] ID Date Data Source [id number] 01/09/2020 10:14:00 AM EDT [facility] ([facility]) Name Value Range Interpretation Code Description Data Evelia rce(s) Supporting Document(s) Hemoglobin A1c/Hemoglobin.total in Blood 6.7 [facility] ([facility]) Glucose [Mass/volume] in Serum or Plasma 169 [facility] ([facility]) ID Date Data Source [id number] 08/14/2019 01:16:00 PM EST [facility] ([facility]) Name Value Range Interpretation Code Description Data Evelia rce(s) Supporting Document(s) Glucose, Fasting 118 mg/dL 70-100 [facility] ([facility]) Blood Urea Nitrogen 21 mg/dL 7-18 [facility] ([facility]) Sodium Level 141 meq/L 136-145 [facility] ([facility]) Creatinine For GFR 0.85 mg/dL 0.55-1.30 [facility] ([facility]) Glomerular Filtration Rate > 60.0 [facility] ([facility]) <content>Units are mL/min/1.73 m2</content>
<content></content>
<content>Chronic Kidney Disease Staging per NKF:</content>
<content></content>
<content>Stage I & II GFR >=60 Normal to Mildly Decreased</content>
<content>Stage III GFR 30- 59 Moderately Decreased</content>
<content>Stage IV GFR 15-29 Severely Decreased</content>
<content>Stage V GFR <15 Very Little GFR Left</content>
<content>ESRD GFR <15 on FELT MACHINE MECHANIC</content>
<content></content> Potassium Serum 4.1 meq/L 3.5-5.1 [facility] ([facility]) Chloride Level 105 meq/L 98-107 [facility] ([facility]) Carbon Dioxide Level 31 meq/L 21-32 [facility] Anion Gap 5 meq/L 8-16 [facility] Calcium Level 9.0 mg/dL 8.5-10.1 [facility] ([facility]) ID Date Data Source [id number] 08/14/2019 01:16:00 PM EST [facility] ([facility]) Name Value Range Interpretation Code Description Data Evelia rce(s) Supporting Document(s) Triglycerides Level 85 mg/dL [facility] Cholesterol Level 193 mg/dL [facility] ([facility]) HDL Cholesterol 66 mg/dL [facility] ([facility]) Non-HDL-C 127 mg/dL [facility] LDL Cholesterol 110 mg/dL [facility] ([facility]) Cholesterol Risk Ratio 2.924 [facility] ([facility]) ID Date Data Source [id number] 08/14/2019 01:16:00 PM EST [facility] ([facility]) Name Value Range Interpretation Code Description Data Evelia rce(s) Supporting Document(s) Thyrotropin [Units/volume] in Serum or Plasma by Detec tion limit <= 0.05 mIU/L 2.490 uIU/ML 0.358-3.740 [facility] ([facility] ) Procedure Social History Code Duration Value Status Description Data Source(s ) Smoking 04/21/2020 12:00:00 AM EDT Patient is a former smoker completed Patient is a former smoker [facility] ([facility]) Vital Signs ID Date Data Source [id number] Name Value Range Interpretation Code Description Data Source(s) Oxygen saturation in Arterial blood by Pulse oximetry 98 % 98 % [facility] ([facility]) Body mass index (BMI) [Ratio] 24.1 kg/m2 24.1 k g/m2 [facility] ([facility]) Body weight 134.00 [lb_av] 134.00 [lb_av] MEDEN T ([facility]) Body height 62.5 [in_i] 62.5 [in_i] [facility] ([facility]) 5'2.50" Body temperature 97.0 [degF] 97.0 [degF] [facility] ([facility]) Heart rate 64 /min 64 /min [facility] ([facility]) Diastolic blood pressure 70 mm[Hg] 70 mm[Hg] [facility] ([facility]) Systolic blood pressure 124 mm[Hg] 124 mm[Hg] M EDENT ([facility]) Body mass index (BMI) [Ratio] 23.4 kg/m2 23.4 k g/m2 [facility] ([facility]) Oxygen saturation in Arterial blood by Pulse oximetry 97 % 97 % [facility] ([facility]) Body weight 130.00 [lb_av] 130.00 [lb_av] MEDEN T ([facility]) Body height 62.5 [in_i] 62.5 [in_i] [facility] ([facility]) 5'2.50" Heart rate 55 /min 55 /min [facility] ([facility]) Body mass index (BMI) [Ratio] 23.8 kg/m2 23.8 k g/m2 [facility] ([facility]) Body weight 132.50 [lb_av] 132.50 [lb_av] MEDEN T ([facility]) Body height 62.5 [in_i] 62.5 [in_i] [facility] ([facility]) 5'2.50" Body temperature 96.2 [degF] 96.2 [degF] [facility] ([facility]) Heart rate 60 /min 60 /min [facility] ([facility]) Diastolic blood pressure 80 mm[Hg] 80 mm[Hg] [facility] ([facility]) Systolic blood pressure 100 mm[Hg] 100 mm[Hg] M EDENT ([facility]) Oxygen saturation in Arterial blood by Pulse oximetry 98 % 98 % [facility] ([facility]) Body mass index (BMI) [Ratio] 24.3 kg/m2 24.3 k g/m2 [facility] ([facility]) Body weight 135.00 [lb_av] 135.00 [lb_av] MEDEN T ([facility]) Body height 62.5 [in_i] 62.5 [in_i] [facility] ([facility]) 5'2.50" Heart rate 70 /min 70 /min [facility] ([facility]) Diastolic blood pressure 78 mm[Hg] 78 mm[Hg] ROSETTE ([facility]) Systolic blood pressure 124 mm[Hg] 124 mm[Hg] M CESILIA ([facility]) Body mass index (BMI) [Ratio] 24.8 kg/m2 24.8 k g/m2 ROSETTE ([facility]) Body weight 138.00 [lb_av] 138.00 [lb_av] ESTEFANY T ([facility]) Body height 62.5 [in_i] 62.5 [in_i] ROSETTE ([facility]) 5'2.50" Heart rate 74 /min 74 /min ROSETTE ([facility]) Diastolic blood pressure 70 mm[Hg] 70 mm[Hg] ROSETTE ([facility]) Systolic blood pressure 110 mm[Hg] 110 mm[Hg] CESILIA ([facility])
[2020-08-18 19:37] VITALS: BP 130/74
== END 2020-08-18 19:43 | disposition home or self-care (01) ==
LOC: M ED 15:38
DX: R07.9 Chest pain, unspecified (principal); E11.9 Type 2 diabetes mellitus without complications; Z79.4 Long term (current) use of insulin; E03.9 Hypothyroidism, unspecified

== ENCOUNTER → 2021-03-04 | Outpatient (CLI) | payer OTHER ==
[~2021-03-04] MED LIST changes: +HUMA100I5; +SYNT88TA2
--- NOTE | 2021-03-04 16:00 | REPMRS ---
Patient History The patient states she has not had a clinical breast exam in over a year. No known family history of cancer. Implants in both breasts, 2002. Patient states no breast complaints today. Patient has signed MRS History Sheet. Digital Woman Screen Mammo: March 04, 2021 - Exam #: [id number] Bilateral CC and MLO view(s) were taken. Technologist: Christin Rivera, Technologist Prior study comparison: February 26, 2020, bilateral digital woman screen mammo performed at [facility]. February 06, 2019, bilateral digital woman screen mammo performed at [facility]. FINDINGS: The breast tissue is extremely dense which could obscure a lesion on mammography. Screening. Digital screening (2D) mammography was performed bilaterally in the CC and MLO projections. Additionally, breast tomosynthesis (3D mammography) was performed bilaterally in the CC and MLO projections. Todays exam was compared to the prior exam/exams.Both Rochelle and non-Rochelle views were obtained. By history, the patient has no complaints of a palpable breast abnormality or other significant breast complaints. The breasts are unchanged in size and shape.Once again, dense heterogenous fibroglandular elements are seen bilaterally in a stable appearing pattern but to such a degree that the sensitivity of the mammogram in detecting cancer is decreased.There are no christophe-soft tissue densities or spiculated masses. There is no internal architectural distortion. There are no suspicious christophe-calcific clusters. Skin thickening or nipple retraction is not present. IMPRESSION: BI-RADS Category 2- Benign Findings. There is no evidence of malignant alteration of the breasts. Followup examination recommended in one year. The Volpara volumetric breast density category is D, the breasts are extremely dense which lowers the sensitivity of mammography. This mammogram was read with the assistance of Ambassador,an FDA approved computer aided detection system for mammography. The lifetime Tyrer-Cuzick score is 7.9 % Due to the density of the breasts or Tyrer Cuzick score of 20% or greater, MRI/whole breast screening ultrasound is warranted. Negative x-ray reports should not delay surgical consultation if a dominant or clinically suspicious mass is present. Not all breast cancers can be identified by mammography. Therefore, we recommend that you continue to perform regular breast self-examination and physical examination and then promptly contact your physician of any concerns or changes. Adenosis and dense breasts may obscure an underlying neoplasm. Assessment: BI-RADS/ACR category 2 mammogram. Benign Findings. Recommendation Routine screening mammogram of both breasts in 1 year. Electronically Signed By: Pilo Lee DO 03/04/21 [id number]
== END ==
LOC: M WHC 15:03
PROVIDERS: ATTEND Obstetrics & Gynecology
DX: Z12.31 Encounter for screening mammogram for malignant neoplasm of breast (principal)

== ENCOUNTER → 2021-05-31 | Outpatient (CLI) | payer OTHER ==
--- NOTE | 2021-05-31 12:33 | REP ---
INDICATION: LT ANKLE W/ PAIN ? TEAR. COMPARISON: None. TECHNIQUE: Multiple sequences are obtained in the axial, coronal and sagittal planes. FINDINGS: The Achilles, anterior tibial, posterior tibial, flexor hallucis longus, flexor digitorum longus and peroneal tendons are all intact without significant tenosynovitis. The anterior and posterior talofibular, calcaneofibular and deltoid ligaments appear intact. Plantar tendon appears intact. There is no plantar fasciitis. Sinus tarsi appears unremarkable. No ganglion cyst is seen. There is normal amount of joint fluid. The cartilaginous surfaces are smooth. No osteochondral defect is seen at the tibiotalar joint. There is no bone marrow edema or occult fracture. IMPRESSION: Negative MRI of the ankle. <Electronically signed by Christos Martinez > 05/31/21 [id number]
== END ==
LOC: M RAD 11:17
PROVIDERS: ATTEND Orthopaedic Surgery
DX: M25.572 Pain in left ankle and joints of left foot (principal); M79.672 Pain in left foot

== ENCOUNTER → 2021-08-31 | Outpatient (CLI) | payer OTHER | LOC: M CARPUL 09:38 | PROVIDERS: ATTEND Nurse Practitioner Adult Health | DX: R07.89 Other chest pain (principal) ==

== ENCOUNTER → 2021-09-17 | Outpatient (CLI) | payer OTHER | LOC: M WHC 10:03 | PROVIDERS: ATTEND Nurse Practitioner Adult Health | DX: R92.2 Inconclusive mammogram (principal) ==

== ENCOUNTER → 2022-02-02 | Outpatient (CLI) | payer OTHER | LOC: M PAIN 13:00 | PROVIDERS: ATTEND Anesthesiology | DX: M79.672 Pain in left foot (principal); M79.2 Neuralgia and neuritis, unspecified; M25.522 Pain in left elbow; E03.9 Hypothyroidism, unspecified; G43.909 Migraine, unspecified, not intractable, without status migrainosus; L70.9 Acne, unspecified; E10.9 Type 1 diabetes mellitus without complications; M26.609 Unspecified temporomandibular joint disorder, unspecified side; Z87.891 Personal history of nicotine dependence; Z79.4 Long term (current) use of insulin; Z79.899 Other long term (current) drug therapy; J30.1 Allergic rhinitis due to pollen; J30.81 Allergic rhinitis due to animal (cat) (dog) hair and dander ==

== ENCOUNTER → 2022-10-06 | Outpatient (CLI) | payer OTHER ==
[~2022-10-06] MED LIST changes: +[UNRECOGNIZED DRUG - CODE] XX; -[UNRECOGNIZED DRUG - CODE] XX
== END ==
LOC: M WHC 10:19
PROVIDERS: ATTEND Obstetrics & Gynecology
DX: Z12.31 Encounter for screening mammogram for malignant neoplasm of breast (principal)

== ENCOUNTER → 2025-05-29 | Outpatient (CLI) | payer OTHER | LOC: M WHC 07:28 | PROVIDERS: ATTEND Obstetrics & Gynecology | DX: Z12.31 Encounter for screening mammogram for malignant neoplasm of breast (principal) ==